=== PATIENT | male | born 1995 | race Caucasian/White ===

== ENCOUNTER 2016-09-04 05:31 | Emergency (ER) | payer BC, OTHER ==
[2016-09-04] MEDS ORDERED: ONDANSETRON 4 MG/2 ML VIAL IVP STA (06:24)
[2016-09-04] MEDS ORDERED: KETOROLAC 30 MG/ML 1 ML VIAL IVP STA (06:24)
--- NOTE | 2016-09-04 06:30 | ED ---
Abdominal Pain HPI - General Chief Complaint: Abdominal Pain Stated Complaint: kidney pain Time Seen by Provider: 09/04/16 06:02 Source: patient Mode of arrival: ambulatory Limitations: no limitations - History of Present Illness Initial Comments: This patient is 21-year-old man who presents with flank and abdominal pain. The patient states that the symptoms started Wednesday while he was at work. I will symptoms did not resolve he went to the urgent care yesterday, where he was seen and told that he had blood in his urine. He states he had a urinalysis and an x-ray, though he was not informed of the x-ray results. The patient was reportedly given prescription for ciprofloxacin and went home, where he states the pain seemed to worsen over the course of last night. He also had 2 episodes of vomiting that he states was due to the pain. The patient denies any hematemesis. Patient denies fever or chills. No chest pain , shortness of breath or cough. The pain is to the low back and radiates towards the right groin. There is no testicular pain or swelling. The pain is constant, severe, sharp and aching. Patient states it is worse if he lies supine and better if he sitting upright. MD Complaint: abdominal pain, flank pain Onset/Timin -: days(s) Location: RLQ, L flank, R flank Radiation: none Migration to: no migration Severity: severe Quality: aching, sharp Consistency: constant Improves With: other (Sitting upright) Worsens With: other (Lying supine) Associated Symptoms: nausea, vomiting - Related Data Home Medications Medication Instructions Recorded Confirmed Ciprofloxacin HCl [Cipro] 500 mg PO Q12HR 09/04/16 09/04/16 Previous Rx's Medication Instructions Recorded Acetaminophen-Codeine 300-30mg 1 tab PO Q4H PRN #20 tablet 09/04/16 [Tylenol w/codeine #3] Allergies Allergy/AdvReac Type Severity Reaction Status Date / Time No Known Allergies Allergy Verified 02/11/14 14:41 Review of Systems ROS Statement: Those systems with pertinent positive or pertinent negative responses have been documented in the HPI. ROS Other: All systems not noted in ROS Statement are negative. Constitutional: Denies: fever, chills Respiratory: Denies: cough, dyspnea Cardiovascular: Denies: chest pain, edema, syncope Gastrointestinal: Reports: as per HPI, abdominal pain, nausea, vomiting. Denies : diarrhea, constipation, melena, hematochezia Genitourinary: Denies: dysuria, hematuria, testicular pain, testicular mass Musculoskeletal: Reports: as per HPI, back pain Skin: Denies: rash Neurological: Denies: weakness, numbness Past Medical History Past Medical History: No Reported History History of Any Multi-Drug Resistant Organisms: None Reported Past Surgical History: Appendectomy Past Psychological History: No Psychological Hx Reported Smoking Status: Former smoker Past Alcohol Use History: None Reported Past Drug Use History: None Reported General Exam Limitations: no limitations General appearance: alert, in distress (Secondary to abdominal pain), obese Head exam: Present: atraumatic, normocephalic Eye exam: Present: normal appearance. Absent: scleral icterus, conjunctival injection ENT exam: Present: normal oropharynx Neck exam: Present: normal inspection Respiratory exam: Present: normal lung sounds bilaterally. Absent: respiratory distress, wheezes, rales, rhonchi, stridor Cardiovascular Exam: Present: regular rate, normal rhythm, normal heart sounds. Absent: systolic murmur, diastolic murmur, rubs, gallop GI/Abdominal exam: Present: soft, tenderness, normal bowel sounds. Absent: distended, guarding, rebound, mass, pulsatile mass, hernia Extremities exam: Present: normal inspection, normal capillary refill. Absent: pedal edema, calf tenderness Back exam: Present: normal inspection, full ROM, CVA tenderness (R). Absent: CVA tenderness (L), vertebral tenderness Neurological exam: Present: alert, normal gait Psychiatric exam: Present: normal affect Skin exam: Present: warm, intact, normal color, diaphoretic. Absent: rash Course Vital Signs 09/04/16 09/04/16 05:41 07:33 Temperature 97.9 F Pulse Rate 80 80 Respiratory 18 15 Rate Blood Pressure 133/68 97/52 O2 Sat by Pulse 96 97 Oximetry Medical Decision Making - Lab Data Result diagrams: 09/04/16 06:22 09/04/16 06:22 Lab Results 09/04/16 09/04/16 09/04/16 Range/Units 06:03 06:22 06:22 WBC 6.2 (4.0-11.0) k/uL RBC 5.72 (4.30-5.90) m/uL Hgb 16.7 (13.0-17.5) gm/dL Hct 50.3 (39.0-53.0) % MCV 88.0 (80.0-100.0) fL MCH 29.1 (25.0-35.0) pg MCHC 33.1 (31.0-37.0) g/dL RDW 12.7 (11.5-15.5) % Plt Count 238 (150-450) k/uL Neutrophils % 54 % Lymphocytes % 32 % Monocytes % 8 % Eosinophils % 2 % Basophils % 0 % Neutrophils # 3.3 (1.3-7.7) k/uL Lymphocytes # 2.0 (1.0-4.8) k/uL Monocytes # 0.5 (0-1.0) k/uL Eosinophils # 0.1 (0-0.7) k/uL Basophils # 0.0 (0-0.2) k/uL Sodium 145 (137-145) mmol/L Potassium 4.4 (3.5-5.1) mmol/L Chloride 107 (98-107) mmol/L Carbon Dioxide 22 (22-30) mmol/L Anion Gap 16 mmol/L BUN 14 (9-20) mg/dL Creatinine 0.83 (0.66-1.25) mg/dL Est GFR (MDRD) Af Amer >60 (>60 ml/min/1.73 sqM) Est GFR (MDRD) Non-Af >60 (>60 ml/min/1.73 sqM) Glucose 94 (74-99) mg/dL Calcium 9.7 (8.4-10.2) mg/dL Total Bilirubin 1.3 (0.2-1.3) mg/dL AST 51 (17-59) U/L ALT 73 H (21-72) U/L Alkaline Phosphatase 63 (38-126) U/L Total Protein 8.6 H (6.3-8.2) g/dL Albumin 4.6 (3.5-5.0) g/dL Amylase 94 (30-110) U/L Lipase 130 (23-300) U/L Urine Color Yellow Urine Appearance Clear (Clear) Urine pH 5.5 (5.0-8.0) Ur Specific Rupert 1.014 (1.001-1.035) Urine Protein Negative (Negative) Urine Glucose (UA) Negative (Negative) Urine Ketones Negative (Negative) Urine Blood Negative (Negative) Urine Nitrite Negative (Negative) Urine Bilirubin Negative (Negative) Urine Urobilinogen <2.0 (<2.0) mg/dL Ur Leukocyte Esterase Negative (Negative) Disposition Clinical Impression: Abdominal pain, Mesenteric adenitis Disposition: HOME SELF-CARE Condition: Fair Instructions: Abdominal Pain (ED) Prescriptions: Acetaminophen-Codeine 300-30mg [Tylenol w/codeine #3] 1 tab PO Q4H PRN #20 tablet PRN Reason: Pain Referrals: Eliezer Durán DO [Primary Care Provider] - 1-2 days
[2016-09-04 06:39] LABS: Appearance,Urine Clear (Clear); Bilirubin,Urine Negative (Negative); Glucose,Urine (UA) Negative (Negative); Ketones,Urine Negative (Negative); Leukocyte Esterase,Urine Negative (Negative); Nitrite,Urine Negative (Negative); PH, Urine 5.5 (5.0-8.0); Protein,Urine Negative (Negative); Specific Gravity,Urine 1.014 (1.001-1.035); UA Billing (MACRO vs. MICRO) CHEM; Urobilinogen,Urine <2.0 mg/dL (<2.0)
[2016-09-04 06:41] LABS: Basophils % (A) 0 %; CH 29.4; CHCM 33.6; Eosinophils # (A) 0.1 k/uL (0-0.7); Eosinophils % (A) 2 %; HCT 50.3 % (39.0-53.0); HDW 2.48; HGB 16.7 gm/dL (13.0-17.5); Luc # (Auto) 0.28; Luc % (Auto) 4; Lymphocytes % (A) 32 %; MCH 29.1 pg (25.0-35.0); MCHC 33.1 g/dL (31.0-37.0); Mean Platelet Volume 7.4; Monocytes # (A) 0.5 k/uL (0-1.0); Monocytes % (A) 8 %; Neutrophils # (A) 3.3 k/uL (1.3-7.7); Neutrophils % (A) 54 %; RBC 5.72 m/uL (4.30-5.90); RDW 12.7 % (11.5-15.5); WBC 6.2 k/uL (4.0-11.0); WBC (Perox) 6.28
[2016-09-04 06:50] LABS: ALT 73 U/L (21-72); AST 51 U/L (17-59); Alkaline Phosphatase 63 U/L (38-126); Amylase 94 U/L (30-110); Anion Gap 16 mmol/L; Blood Urea Nitrogen 14 mg/dL (9-20); Calcium 9.7 mg/dL (8.4-10.2); Carbon Dioxide 22 mmol/L (22-30); Chloride 107 mmol/L (98-107); Glucose 94 mg/dL (74-99); Non-African American GFR(MDRD) >60 (>60 ml/min/1.73 sqM); Potassium 4.4 mmol/L (3.5-5.1); Sodium 145 mmol/L (137-145); Total Bilirubin 1.3 mg/dL (0.2-1.3); Total Protein 8.6 g/dL (6.3-8.2)
[2016-09-04 07:37] VITALS: RESP 15
--- NOTE | 2016-09-04 07:43 | CT ---
EXAMINATION TYPE: CT abdomen pelvis wo con DATE OF EXAM: 09/04/2016 7:03 AM COMPARISON: NONE HISTORY: Nausea, Vomitting and Diarrhea. Abdominal pain. Renal Stone CT DLP: 1317.40 mGycm Automated exposure control for dose reduction was used. TECHNIQUE: Helical acquisition of images was performed from the lung bases through the pelvis. FINDINGS: LUNG BASES: No significant abnormality is appreciated. LIVER/GB: Liver reduced attenuation suggests fatty infiltration. Liver appears to be enlarged measuri ng 25 cm. Correlate for hepatomegaly.. PANCREAS: No significant abnormality is seen. SPLEEN: No significant abnormality is seen. ADRENALS: No significant abnormality is seen. KIDNEYS: No significant abnormality is seen. URINARY BLADDER: No significant abnormality is seen. ADENOPATHY: Shotty adenopathy in the right lower quadrant mesentery. . OSSEOUS STRUCTURES: Curvature of the spine may be positional correlate for scoliotic curvature.. BOWEL: Suggestion of surgical change in the region of the appendix. Appendix is not seen with certai nty correlate for previous appendectomy bowel gas pattern nonspecific. No diagnostic evidence. OTHER: Aorta of normal caliber. Bladder is nondistended which likely is nonspecific bladder wall thic kening which be correlated clinically to exclude cystitis IMPRESSION: SHOTTY ADENOPATHY IN THE RIGHT LOWER QUADRANT CAN OCCASIONALLY BE SEEN WITH MESENTERIC ADENITIS. APPE ARS TO BE EVIDENCE OF PREVIOUS SURGERY IN THE REGION OF THE RIGHT CECUM. RELATED TO PREVIOUS APPENDEC DEANDRE. Appendix is not visualized. Correlate clinically. Correlate for fatty infiltration of the liver or hepatitis with hepatomegaly.
[2016-09-04 08:32] VITALS: BP 111/56; PULSE 67; TEMP 97.3
== END 2016-09-04 08:33 | disposition home or self-care (01) ==
LOC: EC 05:31
DX: I88.0 Nonspecific mesenteric lymphadenitis (principal); R11.2 Nausea with vomiting, unspecified; E66.9 Obesity, unspecified; Z87.891 Personal history of nicotine dependence; Z90.49 Acquired absence of other specified parts of digestive tract; Z68.39 Body mass index [BMI] 39.0-39.9, adult
CPT/HCPCS: 99284; 96374; 96375; 36415; 80053; 82150; 83690; 85025; 81003; 74176; J2405; J1885

== ENCOUNTER 2016-11-15 23:53 | Emergency (ER) | payer BC ==
--- NOTE | 2016-11-16 00:05 | ED ---
General Adult HPI - General Stated complaint: chest pain Time Seen by Provider: 11/15/16 23:55 Source: RN notes reviewed - History of Present Illness Initial comments: This is a 21-year-old male presents emergency department with no significant past medical history. Patient states earlier today started having some palpitations in his heart and he felt some positive as well. This concerned him but he continued on with his day patient states later in the evening he again had some palpitations and felt some tingling in his left arm secondary came to the emergency department. Patient states he has no decreased sensation he has no weakness of the left arm. Patient denies any recent injury or trauma. Patient denies any fever patient denies any recent cough. Patient states currently he feels a little soreness in his chest and he states that when he palpates it it is reproducible. Patient denies abdominal pain patient denies nausea vomiting diarrhea. Patient denies headache patient denies numbness weakness. Patient denies lightheadedness dizziness or syncopal episode. - Related Data Home Medications Medication Instructions Recorded Confirmed Ciprofloxacin HCl [Cipro] 500 mg PO Q12HR 09/04/16 09/04/16 Previous Rx's Medication Instructions Recorded Acetaminophen-Codeine 300-30mg 1 tab PO Q4H PRN #20 tablet 09/04/16 [Tylenol w/codeine #3] Allergies Allergy/AdvReac Type Severity Reaction Status Date / Time cotton seed oil Allergy Unknown Uncoded 11/16/16 00:29 Review of Systems ROS Statement: Those systems with pertinent positive or pertinent negative responses have been documented in the HPI. ROS Other: All systems not noted in ROS Statement are negative. Past Medical History Past Medical History: No Reported History History of Any Multi-Drug Resistant Organisms: None Reported Past Surgical History: Appendectomy Past Psychological History: No Psychological Hx Reported Smoking Status: Former smoker Past Alcohol Use History: None Reported Past Drug Use History: None Reported General Exam - General Exam Comments Initial Comments: GENERAL: Patient is well-developed and well-nourished. Patient is nontoxic and well- hydrated and is in mild distress. ENT: Neck is soft and supple. No significant lymphadenopathy is noted. Oropharynx is clear. Moist mucous membranes. Neck has full range of motion without eliciting any pain. EYES: The sclera were anicteric and conjunctiva were pink and moist. Extraocular movements were intact and pupils were equal round and reactive to light. Eyelids were unremarkable. PULMONARY: Unlabored respirations. Good breath sounds bilaterally. No audible rales rhonchi or wheezing was noted. CARDIOVASCULAR: There is a regular rate and rhythm without any murmurs gallops or rubs. ABDOMEN: Soft and nontender with normal bowel sounds. No palpable organomegaly was noted. There is no palpable pulsatile mass. SKIN: Skin is clear with no lesions or rashes and otherwise unremarkable. NEUROLOGIC: Patient is alert and oriented x3. Cranial nerves II through XII are grossly intact. Motor and sensory are also intact. Normal speech, volume and content. Symmetrical smile. MUSCULOSKELETAL: Normal extremities with adequate strength and full range of motion. No lower extremity swelling or edema. No calf tenderness. LYMPHATICS: No significant lymphadenopathy is noted PSYCHIATRIC: Normal psychiatric evaluation. Normal interpersonal interactions appears functionally intact in deals appropriately with others. No signs of depression. No signs of anxiety. Course Vital Signs 11/16/16 11/16/16 00:00 00:34 Temperature 100.4 F H Pulse Rate 88 91 Respiratory 18 18 Rate Blood Pressure 155/85 140/64 O2 Sat by Pulse 100 98 Oximetry Medical Decision Making - Medical Decision Making EKG shows a normal sinus rhythm at 92 bpm AL interval is 130 QRS is 100 QT interval 384 QTC is 474. Patient's EKG shows no ST segment elevation or depression Chest x-ray shows no acute abnormality. - Lab Data Result diagrams: 11/16/16 00:17 11/16/16 00:17 Lab Results 11/16/16 11/16/16 11/16/16 Range/Units 00: 00:17 00:17 WBC 9.1 (4.0-11.0) k/uL RBC 5.66 (4.30-5.90) m/uL Hgb 16.6 (13.0-17.5) gm/dL Hct 50.8 (39.0-53.0) % MCV 89.7 (80.0-100.0) fL MCH 29.3 (25.0-35.0) pg MCHC 32.6 (31.0-37.0) g/dL RDW 13.1 (11.5-15.5) % Plt Count 267 (150-450) k/uL Neutrophils % 63 % Lymphocytes % 27 % Monocytes % 4 % Eosinophils % 3 % Basophils % 1 % Neutrophils # 5.7 (1.3-7.7) k/uL Lymphocytes # 2.5 (1.0-4.8) k/uL Monocytes # 0.4 (0-1.0) k/uL Eosinophils # 0.2 (0-0.7) k/uL Basophils # 0.1 (0-0.2) k/uL PT (9.0-12.0) sec INR (<1.1) APTT (22.0-30.0) sec Sodium 141 (137-145) mmol/L Potassium 4.4 (3.5-5.1) mmol/L Chloride 104 (98-107) mmol/L Carbon Dioxide 25 (22-30) mmol/L Anion Gap 12 mmol/L BUN 13 (9-20) mg/dL Creatinine 0.90 (0.66-1.25) mg/dL Est GFR (MDRD) Af Amer >60 (>60 ml/min/1.73 sqM) Est GFR (MDRD) Non-Af >60 (>60 ml/min/1.73 sqM) Glucose 99 (74-99) mg/dL Calcium 9.7 (8.4-10.2) mg/dL Magnesium 1.8 (1.6-2.3) mg/dL Total Bilirubin 1.0 (0.2-1.3) mg/dL AST 37 (17-59) U/L ALT 66 (21-72) U/L Alkaline Phosphatase 60 (38-126) U/L Total Creatine Kinase 49 L (55-170) U/L CK-MB (CK-2) 0.4 (0.0-2.4) ng/mL CK-MB (CK-2) Rel Index 0.8 Troponin I <0.012 (0.000-0.034) ng/mL Total Protein 7.9 (6.3-8.2) g/dL Albumin 4.7 (3.5-5.0) g/dL 11/16/16 Range/Units 00:17 WBC (4.0-11.0) k/uL RBC (4.30-5.90) m/uL Hgb (13.0-17.5) gm/dL Hct (39.0-53.0) % MCV (80.0-100.0) fL MCH (25.0-35.0) pg MCHC (31.0-37.0) g/dL RDW (11.5-15.5) % Plt Count (150-450) k/uL Neutrophils % % Lymphocytes % % Monocytes % % Eosinophils % % Basophils % % Neutrophils # (1.3-7.7) k/uL Lymphocytes # (1.0-4.8) k/uL Monocytes # (0-1.0) k/uL Eosinophils # (0-0.7) k/uL Basophils # (0-0.2) k/uL PT 10.2 (9.0-12.0) sec INR 1.0 (<1.1) APTT 29.1 (22.0-30.0) sec Sodium (137-145) mmol/L Potassium (3.5-5.1) mmol/L Chloride (98-107) mmol/L Carbon Dioxide (22-30) mmol/L Anion Gap mmol/L BUN (9-20) mg/dL Creatinine (0.66-1.25) mg/dL Est GFR (MDRD) Af Amer (>60 ml/min/1.73 sqM) Est GFR (MDRD) Non-Af (>60 ml/min/1.73 sqM) Glucose (74-99) mg/dL Calcium (8.4-10.2) mg/dL Magnesium (1.6-2.3) mg/dL Total Bilirubin (0.2-1.3) mg/dL AST (17-59) U/L ALT (21-72) U/L Alkaline Phosphatase (38-126) U/L Total Creatine Kinase (55-170) U/L CK-MB (CK-2) (0.0-2.4) ng/mL CK-MB (CK-2) Rel Index Troponin I (0.000-0.034) ng/mL Total Protein (6.3-8.2) g/dL Albumin (3.5-5.0) g/dL Disposition Clinical Impression: Palpitations Disposition: HOME SELF-CARE Condition: Good Instructions: Palpitations (ED) Referrals: Eliezer Durán DO [Primary Care Provider] - 1-2 days Time of Disposition: 01:04
[2016-11-16 00:07] VITALS: RESP 18
[2016-11-16] MEDS ORDERED: ACETAMINOPHEN TAB 500 MG TAB PO STA (00:09)
[2016-11-16 00:31] LABS: Basophils # (A) 0.1 k/uL (0-0.2); Basophils % (A) 1 %; CH 29.9; CHCM 33.5; Eosinophils # (A) 0.2 k/uL (0-0.7); Eosinophils % (A) 3 %; HCT 50.8 % (39.0-53.0); HDW 2.42; HGB 16.6 gm/dL (13.0-17.5); Luc # (Auto) 0.22; Luc % (Auto) 2; Lymphocytes # (A) 2.5 k/uL (1.0-4.8); Lymphocytes % (A) 27 %; MCH 29.3 pg (25.0-35.0); MCHC 32.6 g/dL (31.0-37.0); MCV 89.7 fL (80.0-100.0); Mean Platelet Volume 7.6; Monocytes # (A) 0.4 k/uL (0-1.0); Monocytes % (A) 4 %; Neutrophils # (A) 5.7 k/uL (1.3-7.7); Neutrophils % (A) 63 %; RBC 5.66 m/uL (4.30-5.90); RDW 13.1 % (11.5-15.5); WBC 9.1 k/uL (4.0-11.0); WBC (Perox) 8.23
[2016-11-16 00:36] LABS: Partial Thromboplastin Time 29.1 sec (22.0-30.0); Prothrombin Time 10.2 sec (9.0-12.0)
[2016-11-16 00:40] LABS: ALT 66 U/L (21-72); AST 37 U/L (17-59); Alkaline Phosphatase 60 U/L (38-126); Anion Gap 12 mmol/L; Blood Urea Nitrogen 13 mg/dL (9-20); Calcium 9.7 mg/dL (8.4-10.2); Carbon Dioxide 25 mmol/L (22-30); Chloride 104 mmol/L (98-107); Glucose 99 mg/dL (74-99); Magnesium 1.8 mg/dL (1.6-2.3); Non-African American GFR(MDRD) >60 (>60 ml/min/1.73 sqM); Potassium 4.4 mmol/L (3.5-5.1); Sodium 141 mmol/L (137-145); Total Protein 7.9 g/dL (6.3-8.2)
[2016-11-16 00:46] LABS: Creatine Kinase 49 U/L (55-170)
[2016-11-16 00:59] LABS: Creatine Kinase MB 0.4 ng/mL (0.0-2.4); Troponin I <0.012 ng/mL (0.000-0.034)
[2016-11-16 01:14] VITALS: BP 125/59; PULSE 89; TEMP 100
--- NOTE | 2016-11-16 01:39 | XR ---
EXAM: XR Chest, 2 Views CLINICAL HISTORY: Dysrhythmia TECHNIQUE: Frontal and lateral views of the chest. COMPARISON: No relevant prior studies available. FINDINGS: Lungs: Unremarkable. No consolidation. Pleural space: Unremarkable. No pneumothorax. Heart: Unremarkable. No cardiomegaly. Mediastinum: Unremarkable. Bones/joints: Unremarkable. IMPRESSION: Normal chest x-rays.
== END 2016-11-16 01:14 | disposition home or self-care (01) ==
LOC: EC 23:53
DX: R00.2 Palpitations (principal); Z87.891 Personal history of nicotine dependence; Z91.048 Other nonmedicinal substance allergy status
CPT/HCPCS: 36415; 71020; 80053; 82550; 82553; 83735; 84484; 85025; 85610; 85730; 93005; 99285

== ENCOUNTER 2017-03-16 00:04 | Emergency (ER) | payer BC ==
[2017-03-16 00:09] VITALS: RESP 16
[2017-03-16] MEDS ORDERED: predniSONE 20 MG TAB PO STA (01:08)
[2017-03-16] MEDS ORDERED: valACYclovir 500 MG TAB PO STA (01:35)
--- NOTE | 2017-03-16 01:35 | ED ---
General Adult HPI - General Chief complaint: ENT Stated complaint: L Side Face Numbness Time Seen by Provider: 03/16/17 00:18 Source: patient Mode of arrival: ambulatory Limitations: no limitations - History of Present Illness Initial comments: Left facial weakness. Patient is 21-year-old man who states that he was at work tonight probably about 3 hours ago, when he noted that the left side of his face was feeling funny. Coworkers subsequent only told him that his face was asymmetric, and he has noted that his eyelid seems to be drooping. Onset/Timin -: hour(s) Location: face Consistency: constant Improves with: none Worsens with: none Associated Symptoms: denies other symptoms Treatments Prior to Arrival: none - Related Data Home Medications Medication Instructions Recorded Confirmed Ciprofloxacin HCl [Cipro] 500 mg PO Q12HR 09/04/16 09/04/16 Previous Rx's Medication Instructions Recorded Acetaminophen-Codeine 300-30mg 1 tab PO Q4H PRN #20 tablet 09/04/16 [Tylenol w/codeine #3] predniSONE 80 mg PO DIRECTED #30 tab 03/16/17 valACYclovir [Valtrex] 500 mg PO BID #10 tab 03/16/17 Allergies Allergy/AdvReac Type Severity Reaction Status Date / Time cotton seed oil Allergy Unknown Uncoded 03/16/17 00:09 Review of Systems ROS Statement: Those systems with pertinent positive or pertinent negative responses have been documented in the HPI. ROS Other: All systems not noted in ROS Statement are negative. Constitutional: Denies: fever, chills Eyes: Denies: eye pain, vision change Respiratory: Denies: cough, dyspnea Cardiovascular: Denies: chest pain Skin: Denies: rash Neurological: Reports: weakness (Left face), numbness (Left face). Denies: headache, paresthesias Past Medical History Past Medical History: No Reported History History of Any Multi-Drug Resistant Organisms: None Reported Past Surgical History: Appendectomy Past Psychological History: No Psychological Hx Reported Smoking Status: Former smoker Past Alcohol Use History: None Reported Past Drug Use History: None Reported General Exam Limitations: no limitations General appearance: alert, in no apparent distress, obese Head exam: Present: atraumatic, normocephalic Eye exam: Present: PERRL, EOMI. Absent: scleral icterus, conjunctival injection , periorbital swelling, periorbital tenderness ENT exam: Present: TM's normal bilaterally, normal external ear exam, other ( There is left facial droop) Neck exam: Present: normal inspection, full ROM Respiratory exam: Present: normal lung sounds bilaterally. Absent: respiratory distress, wheezes, rales, rhonchi, stridor Cardiovascular Exam: Present: regular rate, normal rhythm, normal heart sounds. Absent: systolic murmur, diastolic murmur, rubs, gallop GI/Abdominal exam: Present: soft. Absent: distended, tenderness, guarding, rebound, rigid Extremities exam: Present: normal inspection, normal capillary refill. Absent: pedal edema, calf tenderness Neurological exam: Present: alert, oriented X3. Absent: CN II-XII intact ( Patient has weakness of the left side of the face, including the upper motor branch.), motor sensory deficit Skin exam: Present: warm, dry, intact, normal color. Absent: rash Course Vital Signs 03/16/17 03/16/17 00:05 01:51 Temperature 99.2 F 98.2 F Pulse Rate 85 68 Respiratory 16 16 Rate Blood Pressure 173/101 109/62 O2 Sat by Pulse 99 99 Oximetry Medical Decision Making - Medical Decision Making Patient is 21-year-old man with the acute onset of left sided facial weakness, involving both the upper portion of the face and lower, consistent with Brown's palsy. Discussed appropriate care and follow-up and started patient on medication here. Discussed return parameters. Discussed artificial tear use. Disposition Clinical Impression: Brown's palsy Disposition: HOME SELF-CARE Condition: Good Instructions: Brown Palsy (ED) Prescriptions: predniSONE 80 mg PO DIRECTED #30 tab valACYclovir [Valtrex] 500 mg PO BID #10 tab Referrals: Eliezer Durán DO [Primary Care Provider] - 1-2 days
[2017-03-16 01:52] VITALS: BP 109/62; PULSE 68; TEMP 98.2
[2017-03-16] MEDS ORDERED: valACYclovir 500 MG TAB PO SCH (09:00)
--- NOTE | 2017-03-18 04:14 | CDI ---
Documentation Clarification OP Dear Dr. Julien Maynard Please do addendum to ED report that provides complete HPI, Physical Exam and MDM. Thank you, Steve Zhao Sales Agent Protective Service If you have any questions, please contact Patient Scheduler at [phone] [facility]
== END 2017-03-16 01:51 | disposition home or self-care (01) ==
LOC: EC 00:04
DX: G51.0 Bell's palsy (principal); Z87.891 Personal history of nicotine dependence
CPT/HCPCS: 99283; J7512

== ENCOUNTER 2018-03-05 13:46 | Emergency (ER) | payer BC, OTHER ==
[2018-03-05 14:01] VITALS: RESP 18; TEMP 98.3
[2018-03-05] MEDS ORDERED: HYDROcodone/APAP 5-325MG 1 EACH TAB PO STA (14:37)
--- NOTE | 2018-03-05 14:41 | ED ---
General Adult HPI - General Chief complaint: ENT Stated complaint: FB ear Time Seen by Provider: 03/05/18 14:20 Source: patient, RN notes reviewed Mode of arrival: ambulatory Limitations: no limitations - History of Present Illness Initial comments: 22-year-old male presents to the emergency department for a chief complaint of right ear pain 1 hour. 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 Patient states hot flux is hot metal. Patient states he is having sharp shooting right ear pain. Patient is up-to-date on immunizations including tetanus. Patient denies any hearing loss. Mother states she was able to pull the piece of hot flux out of the ear. Patient states it was the size of a "spark." Patient has no other complaints at this time including shortness of breath, chest pain, abdominal pain, nausea or vomiting, headache, or visual changes. - Related Data Home Medications Medication Instructions Recorded Confirmed Ciprofloxacin HCl [Cipro] 500 mg PO Q12HR 09/04/16 09/04/16 Previous Rx's Medication Instructions Recorded Acetaminophen-Codeine 300-30mg 1 tab PO Q4H PRN #20 tablet 09/04/16 [Tylenol w/codeine #3] predniSONE 80 mg PO DIRECTED #30 tab 03/16/17 valACYclovir [Valtrex] 500 mg PO BID #10 tab 03/16/17 Ofloxacin 0.3% Ophth Soln [Ocuflox 10 drops RIGHT EAR DAILY 7 Days ml 03/05/18 Ophth Soln] Allergies Allergy/AdvReac Type Severity Reaction Status Date / Time cotton seed oil Allergy Unknown Uncoded 03/05/18 14:01 Review of Systems ROS Statement: Those systems with pertinent positive or pertinent negative responses have been documented in the HPI. ROS Other: All systems not noted in ROS Statement are negative. Past Medical History Past Medical History: No Reported History History of Any Multi-Drug Resistant Organisms: None Reported Past Surgical History: Appendectomy, Ear Surgery Past Psychological History: No Psychological Hx Reported Smoking Status: Former smoker Past Alcohol Use History: None Reported Past Drug Use History: None Reported General Exam Limitations: no limitations General appearance: alert, in no apparent distress Head exam: Present: atraumatic, normocephalic, normal inspection Eye exam: Present: normal appearance, PERRL, EOMI. Absent: scleral icterus, conjunctival injection, periorbital swelling ENT exam: Present: normal oropharynx, mucous membranes moist, TM's normal bilaterally (Tympanic membrane has normal appearance in the right ear, no perforations noted.), normal external ear exam (No erythema noted in the right ear. No evidence of foreign body noted. No pain with palpation of the pinna or tragus) Neck exam: Present: normal inspection, full ROM. Absent: tenderness, meningismus, lymphadenopathy Respiratory exam: Present: normal lung sounds bilaterally. Absent: respiratory distress, wheezes, rales, rhonchi, stridor Cardiovascular Exam: Present: regular rate, normal rhythm, normal heart sounds. Absent: systolic murmur, diastolic murmur, rubs, gallop, clicks Neurological exam: Present: alert, oriented X3, CN II-XII intact Psychiatric exam: Present: normal affect, normal mood Skin exam: Present: warm, dry, intact, normal color. Absent: rash Course Vital Signs 03/05/18 13:59 Temperature 98.3 F Pulse Rate 87 Respiratory 18 Rate Blood Pressure 167/87 O2 Sat by Pulse 99 Oximetry Medical Decision Making - Medical Decision Making 22-year-old male presents for pain of the right ear 2 hours. 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 Patient states this piece of metal was about the size of a "spark." Patient is up-to-date on tetanus. On exam tympanic membrane appears normal, no erythema, bulging, or perforations noted. No evidence of lemus or trauma within the ear canal. Patient was given an [place] in the emergency department and educated on Motrin and Tylenol at home for pain relief. Patient was given ofloxacin drops to prevent any infection. He was educated to keep the ear clean. He was given a referral to ENT. Discussed returning if symptoms worsen such as having increased pain, fevers, or increased redness. Disposition Clinical Impression: Ear pain, right Disposition: HOME SELF-CARE Condition: Good Instructions: Earache (ED) Additional Instructions: Please use antibiotic drops as directed. Take Motrin and Tylenol for pain Try to keep ear clean. Monitor for any worsening symptoms and return if these occur such as increased pain, drainage, or fever. Follow-up with primary care or ENT in 1-2 days. Prescriptions: Ofloxacin 0.3% Ophth Soln [Ocuflox Ophth Soln] 10 drops RIGHT EAR DAILY 7 Days ml Is patient prescribed a controlled substance at d/c from ED?: No Referrals: Eliezer uDrán DO [Primary Care Provider] - 1-2 days Froilan Pierce DO [Doctor of Osteopathic Medicine] - 1-2 days Time of Disposition: 14:38
[2018-03-05] MEDS ORDERED: TOPICAL SKIN ADHESIVE 1 EACH AMP TOPICAL ONE (14:51)
[2018-03-05 14:52] VITALS: BP 129/79; PULSE 79
== END 2018-03-05 14:45 | disposition home or self-care (01) ==
LOC: EC 13:46
DX: H92.01 Otalgia, right ear (principal); Z87.891 Personal history of nicotine dependence; Z91.048 Other nonmedicinal substance allergy status; Z98.890 Other specified postprocedural states
CPT/HCPCS: 99282

== ENCOUNTER 2019-08-02 10:13 | Emergency (ER) | payer BC ==
[2019-08-02] MEDS ORDERED: diphenhydrAMINE 50 MG/ML 1 ML VIAL IVP STA (10:32)
[2019-08-02] MEDS ORDERED: KETOROLAC 30 MG/ML 1 ML VIAL IVP STA (10:32)
[2019-08-02] MEDS ORDERED: ONDANSETRON 4 MG/2 ML VIAL IVP STA (10:32)
--- NOTE | 2019-08-02 10:43 | ED ---
Headache HPI - General Chief Complaint: Headache Stated Complaint: Headache Time Seen by Provider: 08/02/19 10:22 Mode of arrival: ambulatory Limitations: no limitations - History of Present Illness Initial Comments: Patient is a 24-year-old male presenting to the emergency department with a headache 3 days. Patient states he noticed a headache while he was at school on the computer Wednesday evening and so he tried to take some Tylenol but it did not help. Patient states he slept for about 15 hours afterwards woke up feeling a little improvement and went to work however his headache returned. Patient states he has not had a fever, chills. He has been nauseous and vomited one time. The lights make his symptoms worse. He denies chest pain, shortness of breath, cough. Patient states he does have a history of headaches. He has no other complaints at this time. Upon arrival to the ER his BP is slightly elevated at rest of vitals are normal. - Related Data Home Medications Medication Instructions Recorded Confirmed Acetaminophen Tab [Tylenol Tab] 1,000 mg PO Q6HR PRN 08/02/19 08/02/19 Allergies Allergy/AdvReac Type Severity Reaction Status Date / Time cotton seed oil Allergy Unknown Uncoded 08/02/19 11:01 Review of Systems ROS Statement: Those systems with pertinent positive or pertinent negative responses have been documented in the HPI. ROS Other: All systems not noted in ROS Statement are negative. Past Medical History Past Medical History: No Reported History History of Any Multi-Drug Resistant Organisms: None Reported Past Surgical History: Appendectomy, Ear Surgery Past Psychological History: No Psychological Hx Reported Smoking Status: Former smoker Past Alcohol Use History: None Reported Past Drug Use History: None Reported General Exam - General Exam Comments Initial Comments: GENERAL: Well-appearing, well-nourished and in no acute distress. HEAD: Atraumatic, normocephalic. EYES: Pupils equal round and reactive to light, extraocular movements intact, sclera anicteric, conjunctiva are normal. ENT: TMs normal, nares patent, oropharynx clear without exudates. Moist mucous membranes. NECK: Normal range of motion, supple without lymphadenopathy or JVD. LUNGS: Breath sounds clear to auscultation bilaterally and equal. No wheezes rales or rhonchi. HEART: Regular rate and rhythm without murmurs, rubs or gallops. ABDOMEN: Soft, nontender, normoactive bowel sounds. No guarding, no rebound. No masses appreciated. : Deferred EXTREMITIES: Normal range of motion, no pitting or edema. No clubbing or cyanosis. Strength is 5 out of 5 in upper and lower extremities. NEUROLOGICAL: Cranial nerves II through XII grossly intact. Normal speech, normal gait. PSYCH: Normal mood, normal affect. SKIN: Warm, Dry, normal turgor, no rashes or lesions noted. Limitations: no limitations Course Vital Signs 08/02/19 10:17 Temperature 97.9 F Pulse Rate 111 H Respiratory 16 Rate Blood Pressure 150/100 O2 Sat by Pulse 99 Oximetry Medical Decision Making - Medical Decision Making Patient is a 24-year-old male presenting with a headache 3 days. Exam is unremarkable, no neuro deficits. Influenza is negative. Patient received some fluids, pain control, nausea, Benadryl. He reports improvement of symptoms. He is requesting to be discharged. Patient will have a trial of Excedrin for future headaches. He is stable for discharge. Return parameters were discussed with the patient he verbalizes understanding. - Lab Data Lab Results 08/02/19 Range/Units 10:55 Influenza Type A RNA Not Detected (Not Detectd) Influenza Type B (PCR) Not Detected (Not Detectd) Disposition Clinical Impression: Migraine headache Disposition: HOME SELF-CARE Condition: Stable Instructions (If sedation given, give patient instructions): Acute Headache (ED) Additional Instructions: Please return to the Emergency Department if symptoms worsen or any other concerns. Trial of Excedrin Extra Strength for future headaches. Follow-up with PCP. Is patient prescribed a controlled substance at d/c from ED?: No Referrals: Eliezer Durán DO [Primary Care Provider] - 1-2 days
[2019-08-02 12:21] VITALS: BP 138/88; PULSE 94; RESP 18; TEMP 98.2
== END 2019-08-02 12:21 | disposition home or self-care (01) ==
LOC: EC 10:13
DX: G43.909 Migraine, unspecified, not intractable, without status migrainosus (principal); Z91.048 Other nonmedicinal substance allergy status; Z87.891 Personal history of nicotine dependence
CPT/HCPCS: 87502; 99284; 96374; 96375 ×2; J1200; J2405; J1885

== ENCOUNTER 2019-12-04 19:30 | Emergency (ER) | payer BC ==
[2019-12-04 20:06] LABS: Basophils % (A) 0 %; Eosinophils # (A) 0.4 k/uL (0-0.7); Eosinophils % (A) 4 %; HGB 16.7 gm/dL (13.0-17.5); Lymphocytes # (A) 2.5 k/uL (1.0-4.8); Lymphocytes % (A) 27 %; MCH 30.2 pg (25.0-35.0); MCHC 34.1 g/dL (31.0-37.0); MCV 88.6 fL (80.0-100.0); Mean Platelet Volume 8.3; Monocytes # (A) 0.4 k/uL (0-1.0); Monocytes % (A) 4 %; Neutrophils # (A) 5.7 k/uL (1.3-7.7); Neutrophils % (A) 63 %; Platelet Count 290 k/uL (150-450); RBC 5.53 m/uL (4.30-5.90); RDW 12.7 % (11.5-15.5)
[2019-12-04 20:11] LABS: ALT 23 U/L (4-49); AST 26 U/L (17-59); African American GFR (CKD) >90 (>60 ml/min/1.73 sqM); Albumin 4.6 g/dL (3.5-5.0); Alkaline Phosphatase 46 U/L (38-126); Anion Gap 10 mmol/L; Blood Urea Nitrogen 10 mg/dL (9-20); Carbon Dioxide 22 mmol/L (22-30); Chloride 106 mmol/L (98-107); Glucose 136 mg/dL (74-99); Magnesium 1.9 mg/dL (1.6-2.3); Non-African American GFR(CKD) >90 (>60 ml/min/1.73 sqM); Potassium 3.6 mmol/L (3.5-5.1); Sodium 138 mmol/L (137-145); Total Bilirubin 1.2 mg/dL (0.2-1.3); Total Protein 7.6 g/dL (6.3-8.2)
[2019-12-04 20:15] LABS: INR 0.9 (<1.2); Partial Thromboplastin Time 29.1 sec (22.0-30.0); Prothrombin Time 9.7 sec (9.0-12.0)
[2019-12-04] MEDS ORDERED: KETOROLAC 30 MG/ML 1 ML VIAL IVP STA (20:53)
--- NOTE | 2019-12-04 20:56 | ED ---
General Adult HPI - General Chief complaint: Chest Pain Stated complaint: Chest Pain Time Seen by Provider: 12/04/19 20:39 Source: patient, RN notes reviewed, old records reviewed Mode of arrival: wheelchair Limitations: no limitations - History of Present Illness Initial comments: 23-year-old male patient presents to ED with cheif complaint of left parasternal chest pain. Patient was at the pain began yesterday approximately 4 PM after moving some heavy chairs and the bed. He reports that the pain has been consistent for the last 24 hours. Denies any shortness of breath. Denies any other complaints. Denies any past medical history. Systemic: Pt denies fatigue, fever/chills, rash. Pt denies weakness, night sweats, weight loss. Neuro: Pt denies headache, visual disturbances, syncope or pre-syncope. HEENT: Pt denies ocular discharge or irritation, otalgia, rhinorrhea, pharyngitis or notable lymphadenopathy. Cardiopulmonary: Pt denies SOB, heart palpitations, dyspnea on exertion. Abdominal/GI: Pt denies abdominal pain, n/v/d. : Pt denies dysuria, burning w/ urination, frequency/urgency. Denies new onset urinary or bowel incontinence. MSK: Pt denies myalgia, loss of strength or function in extremities. Neuro: Pt denies new onset weakness, paresthesias. - Related Data Home Medications Medication Instructions Recorded Confirmed Ibuprofen [Motrin Ib] 800 mg PO Q8H PRN 12/04/19 12/04/19 Allergies Allergy/AdvReac Type Severity Reaction Status Date / Time cotton seed oil Allergy Unknown Uncoded 12/04/19 21:19 Review of Systems ROS Statement: Those systems with pertinent positive or pertinent negative responses have been documented in the HPI. ROS Other: All systems not noted in ROS Statement are negative. Past Medical History Past Medical History: No Reported History History of Any Multi-Drug Resistant Organisms: None Reported Past Surgical History: Appendectomy, Ear Surgery Past Psychological History: No Psychological Hx Reported Smoking Status: Former smoker Past Alcohol Use History: None Reported Past Drug Use History: None Reported General Exam - General Exam Comments Initial Comments: Constitutional: NAD, AOX3, Pt has pleasant affect. HEENT: NC/AT, trachea midline, neck supple, no lymphadenopathy. Posterior pharynx non erythematous, without exudates. External ears appear normal, without discharge. Mucous membranes moist. Eyes PERRLA, EOM intact. There is no scleral icterus. No pallor noted. Cardiopulmonary: RRR, no murmurs, rubs or gallops, no JVD noted. Lungs CTAB in anterior and posterior collins. No peripheral edema. Abdominal exam: Abdomen soft and non-distended. Abdomen non-tender to palpation in all 4 quadrants. Bowel sounds active in LLQ. No hepatosplenomegaly. No ec chymosis Neuro: CN II-XII grossly intact. No nuchal rigidity. No raccon eyes, no pressley sign, no hemotympanum. No cervical spinal tenderness. MSK: No posterior calf tenderness bilaterally, homans sign negative bilaterally. Posterior tibialis and radial pulse +2 bilaterally. Sensation intact in upper and lower extremities. Full active ROM in upper and lower extremities, 5/5 stregnth. Chest pain is reproducible upon palpation left parasternal region. No external skin changes. Limitations: no limitations Course Vital Signs 12/04/19 12/04/19 19:35 20:21 Temperature 97.9 F Pulse Rate 80 84 Respiratory 18 20 Rate Blood Pressure 147/90 134/80 O2 Sat by Pulse 100 Oximetry Medical Decision Making - Medical Decision Making 23-year-old male patient presents to ED with cheif complaint of left parasternal chest pain. Patient was at the pain began yesterday approximately 4 PM after moving some heavy chairs and the bed. He reports that the pain has been consistent for the last 24 hours. Denies any shortness of breath. Denies any other complaints. Denies any past medical history. Patient vital signs are stable, afebrile. Physical exam displayed chest pain to be reproducible upon palpation. Laboratory investigations are unremarkable. Troponin is negative. Chest x-ray is negative for acute process. Patient's pain improved with Toradol. PERC negative. Patient does report that he has had some mild upper respiratory symptoms which he has been attributed to ALLERGIES. The with the patient's presentation consistent with costochondritis. Patient will be discharged with after anti-inflammatories and will follow up with primary care provider tomorrow. Case discussed with Dr. Morrow. - Lab Data Result diagrams: 12/04/19 19:49 12/04/19 19:54 Lab Results 12/04/19 12/04/19 12/04/19 Range/Units 19:49 19:54 19:54 WBC 9.0 (3.8-10.6) k/uL RBC 5.53 (4.30-5.90) m/uL Hgb 16.7 (13.0-17.5) gm/dL Hct 49.0 (39.0-53.0) % MCV 88.6 (80.0-100.0) fL MCH 30.2 (25.0-35.0) pg MCHC 34.1 (31.0-37.0) g/dL RDW 12.7 (11.5-15.5) % Plt Count 290 (150-450) k/uL Neutrophils % 63 % Lymphocytes % 27 % Monocytes % 4 % Eosinophils % 4 % Basophils % 0 % Neutrophils # 5.7 (1.3-7.7) k/uL Lymphocytes # 2.5 (1.0-4.8) k/uL Monocytes # 0.4 (0-1.0) k/uL Eosinophils # 0.4 (0-0.7) k/uL Basophils # 0.0 (0-0.2) k/uL PT 9.7 (9.0-12.0) sec INR 0.9 (<1.2) APTT 29.1 (22.0-30.0) sec Sodium 138 (137-145) mmol/L Potassium 3.6 (3.5-5.1) mmol/L Chloride 106 (98-107) mmol/L Carbon Dioxide 22 (22-30) mmol/L Anion Gap 10 mmol/L BUN 10 (9-20) mg/dL Creatinine 0.71 (0.66-1.25) mg/dL Est GFR (CKD-EPI)AfAm >90 (>60 ml/min/1.73 sqM) Est GFR (CKD-EPI)NonAf >90 (>60 ml/min/1.73 sqM) Glucose 136 H (74-99) mg/dL Calcium 10.0 (8.4-10.2) mg/dL Magnesium 1.9 (1.6-2.3) mg/dL Total Bilirubin 1.2 (0.2-1.3) mg/dL AST 26 (17-59) U/L ALT 23 (4-49) U/L Alkaline Phosphatase 46 (38-126) U/L Troponin I (0.000-0.034) ng/mL Total Protein 7.6 (6.3-8.2) g/dL Albumin 4.6 (3.5-5.0) g/dL 12/04/19 Range/Units 19:54 WBC (3.8-10.6) k/uL RBC (4.30-5.90) m/uL Hgb (13.0-17.5) gm/dL Hct (39.0-53.0) % MCV (80.0-100.0) fL MCH (25.0-35.0) pg MCHC (31.0-37.0) g/dL RDW (11.5-15.5) % Plt Count (150-450) k/uL Neutrophils % % Lymphocytes % % Monocytes % % Eosinophils % % Basophils % % Neutrophils # (1.3-7.7) k/uL Lymphocytes # (1.0-4.8) k/uL Monocytes # (0-1.0) k/uL Eosinophils # (0-0.7) k/uL Basophils # (0-0.2) k/uL PT (9.0-12.0) sec INR (<1.2) APTT (22.0-30.0) sec Sodium (137-145) mmol/L Potassium (3.5-5.1) mmol/L Chloride (98-107) mmol/L Carbon Dioxide (22-30) mmol/L Anion Gap mmol/L BUN (9-20) mg/dL Creatinine (0.66-1.25) mg/dL Est GFR (CKD-EPI)AfAm (>60 ml/min/1.73 sqM) Est GFR (CKD-EPI)NonAf (>60 ml/min/1.73 sqM) Glucose (74-99) mg/dL Calcium (8.4-10.2) mg/dL Magnesium (1.6-2.3) mg/dL Total Bilirubin (0.2-1.3) mg/dL AST (17-59) U/L ALT (4-49) U/L Alkaline Phosphatase (38-126) U/L Troponin I <0.012 (0.000-0.034) ng/mL Total Protein (6.3-8.2) g/dL Albumin (3.5-5.0) g/dL - EKG Data -: EKG Interpreted by Me (and Dr. Morrow ) EKG Comments: Ventricular rate 91, MD interval 134, QRS 98, QT/QTC 378/464. An chest rhythm, rightward axis. Borderline EKG. No significant change from prior. No concern for acute ischemia or arrhythmia at this time. Disposition Clinical Impression: Anterior chest wall pain, Costochondral chest pain Disposition: HOME SELF-CARE Condition: Stable Instructions (If sedation given, give patient instructions): Costochondritis (ED), Chest Wall Pain (ED) Additional Instructions: Follow-up with primary care provider tomorrow. Take anti-inflammatories for pain. Return to ER if condition worsens in any way. Is patient prescribed a controlled substance at d/c from ED?: No Referrals: Eliezre Durán DO [Primary Care Provider] - 1-2 days
--- NOTE | 2019-12-04 21:23 | XR ---
EXAMINATION TYPE: XR chest 2V DATE OF EXAM: 12/04/2019 COMPARISON: 11/16/2016 HISTORY: Chest pain TECHNIQUE: FINDINGS: Heart and mediastinum are normal. Lungs are clear. Diaphragm is normal. Bony thorax is inta ct. IMPRESSION: Normal chest. No change.
[2019-12-04 22:00] VITALS: BP 120/73; PULSE 79; RESP 12; TEMP 98.1
== END 2019-12-04 22:01 | disposition home or self-care (01) ==
LOC: EC 19:30
DX: R07.89 Other chest pain (principal); R07.1 Chest pain on breathing; Z87.891 Personal history of nicotine dependence; Z91.048 Other nonmedicinal substance allergy status
CPT/HCPCS: 36415; 93005; 80053; 83735; 84484; 85025; 85610; 85730; 71046; 99285; 96374; J1885

== ENCOUNTER 2020-11-05 17:21 | Emergency (ER) | payer BC ==
[2020-11-05 18:07] VITALS: TEMP 98
--- NOTE | 2020-11-05 18:31 | XR ---
EXAMINATION TYPE: XR KUB DATE OF EXAM: 11/05/2020 COMPARISON: None INDICATION: Abdomen pain vomiting TECHNIQUE: Single view abdomen upright view FINDINGS: Some minimal bowel gas is within the ascending colon and hepatic flexure. No suspicious differential air-fluid levels are evident. No free air is evident. No mass effect is evident. Psoas margins are normal. No organomegaly is present. IMPRESSION: 1. Nonspecific abdomen
[2020-11-05 18:43] LABS: Basophils % (A) 0 %; Eosinophils # (A) 0.2 k/uL (0-0.7); Eosinophils % (A) 2 %; HCT 53.6 % (39.0-53.0); HGB 17.2 gm/dL (13.0-17.5); Lymphocytes # (A) 0.7 k/uL (1.0-4.8); Lymphocytes % (A) 7 %; MCHC 32.1 g/dL (31.0-37.0); MCV 90.4 fL (80.0-100.0); Monocytes # (A) 0.3 k/uL (0-1.0); Monocytes % (A) 3 %; Neutrophils # (A) 8.9 k/uL (1.3-7.7); Neutrophils % (A) 88 %; Platelet Count 235 k/uL (150-450); RBC 5.93 m/uL (4.30-5.90); RDW 13.3 % (11.5-15.5); WBC 10.1 k/uL (3.8-10.6)
[2020-11-05 18:53] LABS: ALT 15 U/L (4-49); AST 23 U/L (17-59); African American GFR (CKD) >90 (>60 ml/min/1.73 sqM); Albumin 5.3 g/dL (3.5-5.0); Alkaline Phosphatase 49 U/L (38-126); Amylase 62 U/L (30-110); Anion Gap 10 mmol/L; Blood Urea Nitrogen 12 mg/dL (9-20); Calcium 10.2 mg/dL (8.4-10.2); Carbon Dioxide 25 mmol/L (22-30); Chloride 103 mmol/L (98-107); Glucose 93 mg/dL (74-99); Lipase 73 U/L (23-300); Non-African American GFR(CKD) >90 (>60 ml/min/1.73 sqM); Potassium 4.9 mmol/L (3.5-5.1); Sodium 138 mmol/L (137-145); Total Bilirubin 2.3 mg/dL (0.2-1.3); Total Protein 8.1 g/dL (6.3-8.2)
[2020-11-05] MEDS ORDERED: KETOROLAC 15 MG/ML 1 ML VIAL IVP STA (20:04)
[2020-11-05] MEDS ORDERED: SODIUM CHLORIDE 0.9% 1,000 ML IV ONE (20:04)
[2020-11-05] MEDS ORDERED: ONDANSETRON 4 MG/2 ML VIAL IVP STA (20:04)
[2020-11-05 20:42] LABS: Appearance,Urine Clear (Clear); Bacteria,Urine Rare /hpf; Bilirubin,Urine Negative (Negative); Blood,Urine Negative (Negative); Color,Urine Yellow; Glucose,Urine (UA) Negative (Negative); Ketones,Urine Negative (Negative); Leukocyte Esterase,Urine Negative (Negative); Mucus,Urine Occasional /hpf; Nitrite,Urine Negative (Negative); PH, Urine 5.5 (5.0-8.0); Protein,Urine 1+ (Negative); RBC,Urine 2 /hpf (0-5); Specific Gravity,Urine 1.024 (1.001-1.035); Squamous Epithelial Cell,Urine <1 /hpf (0-4); Urobilinogen,Urine <2.0 mg/dL (<2.0); WBC,Urine 1 /hpf (0-5)
--- NOTE | 2020-11-05 21:59 | US ---
EXAMINATION TYPE: US abdomen limited DATE OF EXAM: 11/05/2020 COMPARISON: CT CLINICAL HISTORY: attention RUQ. Attention RUQ. Abdominal pain x 8.5 hours. Hx appendectomy. EXAM MEASUREMENTS: Liver Length: 18.2 cm Gallbladder Wall: 0.23 cm CBD: 0.44 cm Right Kidney: 11.2 x 5.7 x 5.5 cm Limited due to gas. Pancreas: Limited due to gas. Appears heterogeneous. Liver: Appears slightly enlarged and coarse in echotexture. Gallbladder: Fold seen. Minimal internal echoes versus artifact seen. Evidence for sonographic Majano's sign: No. CBD: Portions seen appear wnl. Right Kidney: No hydronephrosis or masses seen IMPRESSION: 1. No acute ultrasound abnormality.
[2020-11-05] MEDS ORDERED: MAG HYDROX/AL HYDROX/SIMETH 30 ML, HYOSCYAMINE ELIXIR 10 ML, LIDOCAINE VISCOUS 2% 10 ML PO STA ×3 (22:11)
[2020-11-05 22:50] VITALS: BP 124/78; PULSE 82; RESP 16
--- NOTE | 2020-11-05 22:52 | ED ---
Abdominal Pain HPI - General Chief Complaint: Abdominal Pain Stated Complaint: abd pain Time Seen by Provider: 11/05/20 19:54 Source: patient Mode of arrival: ambulatory Limitations: no limitations - History of Present Illness MD Complaint: abdominal pain -: hour(s) Location: periumbilical, epigastric Radiation: none Migration to: no migration Severity: severe Quality: aching, sharp Consistency: constant Improves With: nothing Worsens With: nothing Associated Symptoms: nausea - Related Data Home Medications Medication Instructions Recorded Confirmed Ibuprofen [Motrin Ib] 800 mg PO Q8H PRN 12/04/19 11/05/20 Previous Rx's Medication Instructions Recorded Famotidine [Pepcid] 20 mg PO BID #14 tablet 11/05/20 Allergies Allergy/AdvReac Type Severity Reaction Status Date / Time cotton seed oil Allergy Unknown Uncoded 11/05/20 20:19 Review of Systems ROS Statement: Those systems with pertinent positive or pertinent negative responses have been documented in the HPI. ROS Other: All systems not noted in ROS Statement are negative. Constitutional: Denies: fever, chills Respiratory: Denies: cough, dyspnea Cardiovascular: Denies: chest pain, palpitations, edema Gastrointestinal: Reports: abdominal pain, nausea. Denies: vomiting, diarrhea, constipation Genitourinary: Denies: dysuria, hematuria, testicular pain, testicular mass Musculoskeletal: Denies: back pain Skin: Denies: rash Neurological: Denies: headache, weakness Past Medical History Past Medical History: No Reported History History of Any Multi-Drug Resistant Organisms: None Reported Past Surgical History: Appendectomy, Ear Surgery Past Psychological History: No Psychological Hx Reported Smoking Status: Current every day smoker Past Alcohol Use History: None Reported Past Drug Use History: None Reported General Exam Limitations: no limitations General appearance: alert, in no apparent distress Head exam: Present: atraumatic, normocephalic Eye exam: Present: normal appearance. Absent: scleral icterus, conjunctival injection ENT exam: Present: normal oropharynx Respiratory exam: Present: normal lung sounds bilaterally. Absent: respiratory distress, wheezes, rales, rhonchi, stridor Cardiovascular Exam: Present: regular rate, normal rhythm, normal heart sounds. Absent: systolic murmur, diastolic murmur, rubs, gallop GI/Abdominal exam: Present: soft, tenderness (Epigastric), normal bowel sounds. Absent: distended, guarding, rebound, rigid, mass, pulsatile mass, hernia Extremities exam: Present: normal inspection, normal capillary refill. Absent: pedal edema, calf tenderness Back exam: Present: normal inspection. Absent: CVA tenderness (R), CVA tenderness (L) Neurological exam: Present: alert Skin exam: Present: warm, dry, intact, normal color. Absent: rash Course Vital Signs 11/05/20 11/05/20 18:04 22:49 Temperature 98.0 F Pulse Rate 99 82 Respiratory 18 16 Rate Blood Pressure 120/72 124/78 O2 Sat by Pulse 98 100 Oximetry Medical Decision Making - Medical Decision Making This patient is 25-year-old man with history of previous appendectomy who presents with epigastric and periumbilical abdominal pain going on since early this afternoon. He has had associated nausea. Patient has not noted fever or chills. No cough or dyspnea. No change in urination or bowel movements. - Lab Data Result diagrams: 11/05/20 18:33 11/05/20 18:33 Lab Results 11/05/20 11/05/20 11/05/20 Range/Units 18:33 18:33 18:33 WBC 10.1 (3.8-10.6) k/uL RBC 5.93 H (4.30-5.90) m/uL Hgb 17.2 (13.0-17.5) gm/dL Hct 53.6 H (39.0-53.0) % MCV 90.4 (80.0-100.0) fL MCH 29.0 (25.0-35.0) pg MCHC 32.1 (31.0-37.0) g/dL RDW 13.3 (11.5-15.5) % Plt Count 235 (150-450) k/uL MPV 8.0 Neutrophils % 88 % Lymphocytes % 7 % Monocytes % 3 % Eosinophils % 2 % Basophils % 0 % Neutrophils # 8.9 H (1.3-7.7) k/uL Lymphocytes # 0.7 L (1.0-4.8) k/uL Monocytes # 0.3 (0-1.0) k/uL Eosinophils # 0.2 (0-0.7) k/uL Basophils # 0.0 (0-0.2) k/uL Sodium 138 (137-145) mmol/L Potassium 4.9 (3.5-5.1) mmol/L Chloride 103 (98-107) mmol/L Carbon Dioxide 25 (22-30) mmol/L Anion Gap 10 mmol/L BUN 12 (9-20) mg/dL Creatinine 0.81 (0.66-1.25) mg/dL Est GFR (CKD-EPI)AfAm >90 (>60 ml/min/1.73 sqM) Est GFR (CKD-EPI)NonAf >90 (>60 ml/min/1.73 sqM) Glucose 93 (74-99) mg/dL Plasma Lactic Acid Zacarias 1.0 (0.7-2.0) mmol/L Calcium 10.2 (8.4-10.2) mg/dL Total Bilirubin 2.3 H (0.2-1.3) mg/dL AST 23 (17-59) U/L ALT 15 (4-49) U/L Alkaline Phosphatase 49 (38-126) U/L Total Protein 8.1 (6.3-8.2) g/dL Albumin 5.3 H (3.5-5.0) g/dL Amylase 62 (30-110) U/L Lipase 73 (23-300) U/L Urine Color Urine Appearance (Clear) Urine pH (5.0-8.0) Ur Specific [place] (1.001-1.035) Urine Protein (Negative) Urine Glucose (UA) (Negative) Urine Ketones (Negative) Urine Blood (Negative) Urine Nitrite (Negative) Urine Bilirubin (Negative) Urine Urobilinogen (<2.0) mg/dL Ur Leukocyte Esterase (Negative) Urine RBC (0-5) /hpf Urine WBC (0-5) /hpf Ur Squamous Epith Cells (0-4) /hpf Urine Bacteria (None) /hpf Urine Mucus (None) /hpf 11/05/20 Range/Units 18:39 WBC (3.8-10.6) k/uL RBC (4.30-5.90) m/uL Hgb (13.0-17.5) gm/dL Hct (39.0-53.0) % MCV (80.0-100.0) fL MCH (25.0-35.0) pg MCHC (31.0-37.0) g/dL RDW (11.5-15.5) % Plt Count (150-450) k/uL MPV Neutrophils % % Lymphocytes % % Monocytes % % Eosinophils % % Basophils % % Neutrophils # (1.3-7.7) k/uL Lymphocytes # (1.0-4.8) k/uL Monocytes # (0-1.0) k/uL Eosinophils # (0-0.7) k/uL Basophils # (0-0.2) k/uL Sodium (137-145) mmol/L Potassium (3.5-5.1) mmol/L Chloride (98-107) mmol/L Carbon Dioxide (22-30) mmol/L Anion Gap mmol/L BUN (9-20) mg/dL Creatinine (0.66-1.25) mg/dL Est GFR (CKD-EPI)AfAm (>60 ml/min/1.73 sqM) Est GFR (CKD-EPI)NonAf (>60 ml/min/1.73 sqM) Glucose (74-99) mg/dL Plasma Lactic Acid Zacarias (0.7-2.0) mmol/L Calcium (8.4-10.2) mg/dL Total Bilirubin (0.2-1.3) mg/dL AST (17-59) U/L ALT (4-49) U/L Alkaline Phosphatase (38-126) U/L Total Protein (6.3-8.2) g/dL Albumin (3.5-5.0) g/dL Amylase (30-110) U/L Lipase (23-300) U/L Urine Color Yellow Urine Appearance Clear (Clear) Urine pH 5.5 (5.0-8.0) Ur Specific [place] 1.024 (1.001-1.035) Urine Protein 1+ H (Negative) Urine Glucose (UA) Negative (Negative) Urine Ketones Negative (Negative) Urine Blood Negative (Negative) Urine Nitrite Negative (Negative) Urine Bilirubin Negative (Negative) Urine Urobilinogen <2.0 (<2.0) mg/dL Ur Leukocyte Esterase Negative (Negative) Urine RBC 2 (0-5) /hpf Urine WBC 1 (0-5) /hpf Ur Squamous Epith Cells <1 (0-4) /hpf Urine Bacteria Rare H (None) /hpf Urine Mucus Occasional H (None) /hpf Disposition Clinical Impression: Abdominal pain Disposition: HOME SELF-CARE Condition: Good Instructions (If sedation given, give patient instructions): Abdominal Pain (ED) Prescriptions: Famotidine [Pepcid] 20 mg PO BID #14 tablet Is patient prescribed a controlled substance at d/c from ED?: No Referrals: Eliezer Durán DO [Primary Care Provider] - 1-2 days
== END 2020-11-05 22:57 | disposition home or self-care (01) ==
LOC: EC 17:21
DX: R10.13 Epigastric pain (principal); F17.200 Nicotine dependence, unspecified, uncomplicated; Z90.49 Acquired absence of other specified parts of digestive tract
CPT/HCPCS: 36415; 74018; 76705; 80053; 81001; 82150; 83605; 83690; 85025; 96361; 96374; 96375; 99284

== ENCOUNTER 2021-12-25 23:19 | Emergency (ER) | payer BC, OTHER ==
[2021-12-25 23:31] VITALS: TEMP 96.3
[2021-12-25] MEDS ORDERED: SODIUM CHLORIDE 0.9% 1,000 ML IV STA (23:31)
[2021-12-25 23:49] LABS: Basophils % (A) 0 %; Eosinophils # (A) 0.1 k/uL (0-0.7); Eosinophils % (A) 2 %; HGB 14.3 gm/dL (13.0-17.5); Lymphocytes # (A) 2.5 k/uL (1.0-4.8); Lymphocytes % (A) 39 %; MCH 29.6 pg (25.0-35.0); MCHC 32.6 g/dL (31.0-37.0); MCV 90.9 fL (80.0-100.0); Mean Platelet Volume 7.8; Monocytes # (A) 0.3 k/uL (0-1.0); Monocytes % (A) 5 %; Neutrophils # (A) 3.4 k/uL (1.3-7.7); Neutrophils % (A) 52 %; Platelet Count 266 k/uL (150-450); RBC 4.84 m/uL (4.30-5.90); RDW 13.1 % (11.5-15.5); WBC 6.5 k/uL (3.8-10.6)
[2021-12-26 00:04] LABS: ALT 16 U/L (4-49); AST 44 U/L (17-59); African American GFR (CKD) >90 (>60 ml/min/1.73 sqM); Albumin 4.4 g/dL (3.5-5.0); Alkaline Phosphatase 48 U/L (38-126); Anion Gap 11 mmol/L; Blood Urea Nitrogen 13 mg/dL (9-20); Calcium 8.9 mg/dL (8.4-10.2); Carbon Dioxide 21 mmol/L (22-30); Chloride 110 mmol/L (98-107); Glucose 98 mg/dL (74-99); Non-African American GFR(CKD) >90 (>60 ml/min/1.73 sqM); Potassium 3.7 mmol/L (3.5-5.1); Sodium 142 mmol/L (137-145); Total Bilirubin 1.2 mg/dL (0.2-1.3); Total Protein 6.9 g/dL (6.3-8.2)
[2021-12-26 00:11] LABS: Alcohol 140 mg/dL
--- NOTE | 2021-12-26 00:48 | ED ---
Alcohol HPI - General Chief Complaint: Alcohol Stated Complaint: ETOH Time Seen by Provider: 12/25/21 23:21 Source: EMS Mode of arrival: EMS Limitations: altered mental status - History of Present Illness Initial Comments: Patient is 26-year-old man brought for alcohol intoxication. History is given mainly from the patient's was at bedside. She states that he had been very upset about a job application and began drinking heavily tonight. He did not have any fall or injury at home. When he became very intoxicated ambulance was called. He has had some vomiting with no hematemesis or coffee-ground emesis. 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) Previous Visits for Alcohol Intoxication?: No Recent Trauma: No Associated Symptoms: vomiting Treatments Prior to Arrival: none Chronic Alcohol Use: No - Related Data Home Medications Medication Instructions Recorded Confirmed Ibuprofen [Motrin Ib] 800 mg PO Q8H PRN 12/04/19 11/05/20 Previous Rx's Medication Instructions Recorded Famotidine [Pepcid] 20 mg PO BID #14 tablet 11/05/20 Allergies Allergy/AdvReac Type Severity Reaction Status Date / Time cotton seed oil Allergy Unknown Uncoded 11/05/20 20:19 Review of Systems ROS Statement: Those systems with pertinent positive or pertinent negative responses have been documented in the HPI. ROS Other: All systems not noted in ROS Statement are negative. Limitations: ROS unobtainable due to patients medical condition Respiratory: Denies: dyspnea Cardiovascular: Denies: chest pain Neurological: Denies: headache Past Medical History Past Medical History: No Reported History History of Any Multi-Drug Resistant Organisms: None Reported Past Surgical History: Appendectomy, Ear Surgery Past Psychological History: No Psychological Hx Reported Smoking Status: Current every day smoker Past Alcohol Use History: None Reported Past Drug Use History: None Reported General Exam General appearance: appears intoxicated Head exam: Present: atraumatic, normocephalic Eye exam: Present: normal appearance, PERRL, nystagmus. Absent: scleral icterus, conjunctival injection Respiratory exam: Present: normal lung sounds bilaterally. Absent: respiratory distress, wheezes, rales, rhonchi, stridor Cardiovascular Exam: Present: regular rate, normal rhythm, normal heart sounds. Absent: systolic murmur, diastolic murmur, rubs, gallop GI/Abdominal exam: Present: soft. Absent: distended, tenderness, guarding, rebound, rigid, mass Extremities exam: Present: normal inspection, normal capillary refill. Absent: pedal edema, calf tenderness Back exam: Present: normal inspection. Absent: CVA tenderness (R), CVA tenderness (L) Neurological exam: Present: alert Skin exam: Present: warm, dry, intact, normal color. Absent: rash Course Vital Signs 12/25/21 12/26/21 23:23 01:02 Temperature 96.3 F L Pulse Rate 70 55 L Respiratory 22 19 Rate Blood Pressure 120/78 115/60 O2 Sat by Pulse 100 99 Oximetry Medical Decision Making - Lab Data Result diagrams: 12/25/21 23:34 12/25/21 23:34 Lab Results 12/25/21 12/25/21 Range/Units 23:34 23:34 WBC 6.5 (3.8-10.6) k/uL RBC 4.84 (4.30-5.90) m/uL Hgb 14.3 (13.0-17.5) gm/dL Hct 44.0 (39.0-53.0) % MCV 90.9 (80.0-100.0) fL MCH 29.6 (25.0-35.0) pg MCHC 32.6 (31.0-37.0) g/dL RDW 13.1 (11.5-15.5) % Plt Count 266 (150-450) k/uL MPV 7.8 Neutrophils % 52 % Lymphocytes % 39 % Monocytes % 5 % Eosinophils % 2 % Basophils % 0 % Neutrophils # 3.4 (1.3-7.7) k/uL Lymphocytes # 2.5 (1.0-4.8) k/uL Monocytes # 0.3 (0-1.0) k/uL Eosinophils # 0.1 (0-0.7) k/uL Basophils # 0.0 (0-0.2) k/uL Sodium 142 (137-145) mmol/L Potassium 3.7 (3.5-5.1) mmol/L Chloride 110 H (98-107) mmol/L Carbon Dioxide 21 L (22-30) mmol/L Anion Gap 11 mmol/L BUN 13 (9-20) mg/dL Creatinine 0.83 (0.66-1.25) mg/dL Est GFR (CKD-EPI)AfAm >90 (>60 ml/min/1.73 sqM) Est GFR (CKD-EPI)NonAf >90 (>60 ml/min/1.73 sqM) Glucose 98 (74-99) mg/dL Calcium 8.9 (8.4-10.2) mg/dL Total Bilirubin 1.2 (0.2-1.3) mg/dL AST 44 (17-59) U/L ALT 16 (4-49) U/L Alkaline Phosphatase 48 (38-126) U/L Total Protein 6.9 (6.3-8.2) g/dL Albumin 4.4 (3.5-5.0) g/dL Serum Alcohol 140 mg/dL Disposition Clinical Impression: Alcoholic intoxication Disposition: HOME SELF-CARE Condition: Good Instructions (If sedation given, give patient instructions): Alcohol Intoxication (ED) Is patient prescribed a controlled substance at d/c from ED?: No Referrals: Eliezer Durán DO [Primary Care Provider] - 1-2 days
--- NOTE | 2021-12-26 01:35 | XR ---
EXAMINATION TYPE: XR chest 1V portable DATE OF EXAM: 12/25/2021 COMPARISON: 12/04/2019 HISTORY: Vomiting. Altered mental status. TECHNIQUE: Single view FINDINGS: Heart and mediastinum are normal. Lungs are clear. Diaphragm is normal. Bony thorax appears normal. IMPRESSION: Normal chest. No change.
[2021-12-26] MEDS ORDERED: ONDANSETRON 4 MG/2 ML VIAL IVP STA (03:22)
[2021-12-26 06:08] VITALS: BP 114/58; PULSE 58; RESP 20
== END 2021-12-26 06:38 | disposition home or self-care (01) ==
LOC: EC 23:19
DX: F10.129 Alcohol abuse with intoxication, unspecified (principal); F17.200 Nicotine dependence, unspecified, uncomplicated; Y90.6 Blood alcohol level of 120-199 mg/100 ml; Z91.09 Other allergy status, other than to drugs and biological substances
CPT/HCPCS: 36415; 80053; 85025; 80320; 71045; 99284; 96374; 96361 ×2; J2405

== ENCOUNTER 2022-11-15 20:01 | Emergency (ER) | payer OTHER, BC ==
[2022-11-15 20:07] VITALS: RESP 18
[2022-11-15] MEDS ORDERED: KETOROLAC 15 MG/ML 1 ML VIAL IM STA (20:37)
--- NOTE | 2022-11-15 20:44 | ED ---
General Adult HPI - General Chief complaint: Extremity Injury, Upper Stated complaint: Left shoulder pain Time Seen by Provider: 11/15/22 20:10 Source: patient, RN notes reviewed Mode of arrival: ambulatory Limitations: no limitations - History of Present Illness Initial comments: 27-year-old male presents to the emergency department chief complaint of left shoulder pain 1 day. He states that he is in the [employer] and was doing a very intense workout involving pullups and pushups and started developing intense pain in his left shoulder. He states that he is having difficulty raising his arm above his head. He reports swelling in his left hand. He was seen at [facility] where x-rays were obtained which are negative for fracture. He states that he has taken Tylenol with minimal improvement. He states that he has been icing the area and while icing has improvement in the swelling. - Related Data Home Medications Medication Instructions Recorded Confirmed Ibuprofen [Motrin Ib] 800 mg PO Q8H PRN 12/04/19 11/05/20 Previous Rx's Medication Instructions Recorded Famotidine [Pepcid] 20 mg PO BID #14 tablet 11/05/20 traMADol HCl [Ultram] 50 mg PO Q6H PRN #12 tab 11/15/22 Allergies Allergy/AdvReac Type Severity Reaction Status Date / Time cotton seed oil Allergy Unknown Uncoded 11/15/22 20:07 Review of Systems ROS Statement: Those systems with pertinent positive or pertinent negative responses have been documented in the HPI. ROS Other: All systems not noted in ROS Statement are negative. Past Medical History Past Medical History: No Reported History History of Any Multi-Drug Resistant Organisms: None Reported Past Surgical History: Appendectomy, Ear Surgery Past Psychological History: No Psychological Hx Reported Smoking Status: Vaper Past Alcohol Use History: None Reported Past Drug Use History: None Reported General Exam Limitations: no limitations General appearance: alert, in no apparent distress Head exam: Present: atraumatic, normocephalic, normal inspection Eye exam: Present: normal appearance, PERRL, EOMI. Absent: scleral icterus, conjunctival injection, periorbital swelling ENT exam: Present: normal exam, mucous membranes moist Neck exam: Present: normal inspection. Absent: tenderness, meningismus, lymphadenopathy Respiratory exam: Present: normal lung sounds bilaterally. Absent: respiratory distress, wheezes, rales, rhonchi, stridor Cardiovascular Exam: Present: regular rate, normal rhythm, normal heart sounds. Absent: systolic murmur, diastolic murmur, rubs, gallop, clicks Extremities exam: Present: tenderness, normal capillary refill, other (Decreased range of motion in flexion and abduction plane of the left shoulder, normal range of motion at the elbow, wrist, fingers, radial pulses 2+, mild edema to the left hand, normal capillary refill) Back exam: Present: normal inspection Neurological exam: Present: alert, oriented X3 Psychiatric exam: Present: normal affect, normal mood Skin exam: Present: warm, dry, intact, normal color. Absent: rash Course Vital Signs 11/15/22 11/15/22 20:04 21:52 Temperature 98 F 97.9 F Pulse Rate 89 59 L Respiratory 18 18 Rate Blood Pressure 183/100 124/70 O2 Sat by Pulse 100 96 Oximetry Medical Decision Making - Medical Decision Making Was pt. sent in by a medical professional or institution (, PA, FAST FOOD SHIFT LEAD, urgent care, hospital, or shelter...) When possible be specific @ -No Did you speak to anyone other than the patient for history (EMS, parent, family, police, friend...)? What history was obtained from this source @ -No Did you review nursing and triage notes (agree or disagree)? Why? @ -I reviewed and agree with nursing and triage notes Were old charts reviewed (outside hosp., previous admission, EMS record, old EKG, old radiological studies, urgent care reports/EKG's, shelter records)? Report findings @ -No old charts were reviewed Differential Diagnosis (chest pain, altered mental status, abdominal pain women, abdominal pain men, vaginal bleeding, weakness, fever, dyspnea, syncope, headache, dizziness, GI bleed, back pain, seizure, CVA, palpatations, mental health, musculoskeletal)? @ -Differential Musculoskeletal Muscular strain, contusion, ligament sprain, fracture, arthritis, septic arthritis, bursitis, cellulitis, muscle spasm, nerve compression, DVT, arterial occlusion, herpes zoster, electrolyte abnormality, tumor.... This is not meant to be in all inclusive list EKG interpreted by me (3pts min.). @ -None X-rays interpreted by me (1pt min.). @ -None done CT interpreted by me (1pt min.). @ -None done U/S interpreted by me (1pt. min.). @ -None done What testing was considered but not performed or refused? (CT, X-rays, U/S, labs)? Why? @ -X-rays of the left shoulder were considered but patient had been seen earlier today at an urgent care clinic where x-rays were performed, patient has the report from x-rays which was negative for acute fracture What meds were considered but not given or refused? Why? @ -None Did you discuss the management of the patient with other professionals (professionals i.e. DrDedra, PA, FAST FOOD SHIFT LEAD, lab, RT, psych nurse, home health care social worker, political worker, teacher, strike operations officer, corrections caseworker)? Give summary @ -No Was smoking cessation discussed for >3mins.? @ -No Was critical care preformed (if so, how long)? @ -No Were there social determinants of health that impacted care today? How? (Homelessness, low income, unemployed, alcoholism, drug addiction, transportation, low edu. Level, literacy, decrease access to med. care, shelter, rehab)? @ -No Was there de-escalation of care discussed even if they declined (Discuss DNR or withdrawal of care, Hospice)? DNR status @ -No What co-morbidities impacted this encounter? (DM, HTN, Smoking, COPD, CAD, Cancer, CVA, ARF, Chemo, Hep., AIDS, mental health diagnosis, sleep apnea, morbid obesity)? @ -None Was patient admitted / discharged? Hospital course, mention meds given and route, prescriptions, significant lab abnormalities, going to OR and other pertinent info. @ -Discharged. Patient presented to the emergency department with chief complaint of left shoulder pain. Patient was evaluated at urgent care earlier today and was told to return if he had worsening symptoms. Patient states that he has been taken Tylenol at home but has not taken any Motrin. He had x-rays done at urgent care earlier which showed no acute fractures according to the report. Patient was given a shot of Toradol which he states improved his pain. Patient was evaluated by myself and my attending, Dr. Wall. Discussed with the patient that this is likely a rotator cuff injury and he needs to follow up with primary care provider and orthopedics if the patient does not improve within the next 1-2 weeks. Patient was given orthopedic information for follow- up. Patient was given 3 days of tramadol for pain. Undiagnosed new problem with uncertain prognosis? @ -No Drug Therapy requiring intensive monitoring for toxicity (Heparin, Nitro, Insulin, Cardizem)? @ -No Were any procedures done? @ -No Diagnosis/symptom? @ -Left shoulder pain Acute, or Chronic, or Acute on Chronic? @ -Acute Uncomplicated (without systemic symptoms) or Complicated (systemic symptoms)? @ -Uncomplicated Side effects of treatment? @ -No Exacerbation, Progression, or Severe Exacerbation? @ -No Poses a threat to life or bodily function? How? (Chest pain, [place], [place], pneumonia, PE, COPD, DKA, ARF, appy, cholecystitis, CVA, Diverticulitis, Homicidal, Suicidal, threat to staff... and all critical care pts) @ -No Disposition Clinical Impression: Strain of shoulder Disposition: HOME SELF-CARE Condition: Stable Instructions (If sedation given, give patient instructions): Rotator Cuff Injury (ED), P.R.I.C.E. Treatment (ED) Additional Instructions: Follow-up with orthopedics for further evaluation if you do not have any improvement in symptoms over the next week. Please return to the emergency department for new or worsening symptoms. Mr. Patton was given Toradol while in the emergency department. This is an anti- inflammatory medication and should not show up on a drug screen. Prescriptions: traMADol HCl [Ultram] 50 mg PO Q6H PRN #12 tab PRN Reason: Pain Is patient prescribed a controlled substance at d/c from ED?: Yes If prescribed controlled substance>3 days was MAPS reviewed?: Prescribed <3 Days Referrals: Eliezer Durán DO [Primary Care Provider] - 1-2 days William Moreno DO [Doctor of Osteopathic Medicine] - 1-2 days Time of Disposition: 21:36
[2022-11-15 21:54] VITALS: BP 124/70; PULSE 59; TEMP 97.9
== END 2022-11-15 21:53 | disposition home or self-care (01) ==
LOC: EC 20:01
DX: S46.912A Strain of unspecified muscle, fascia and tendon at shoulder and upper arm level, left arm, initial encounter (principal); F17.290 Nicotine dependence, other tobacco product, uncomplicated; Z88.8 Allergy status to other drugs, medicaments and biological substances; X58.XXXA Exposure to other specified factors, initial encounter
CPT/HCPCS: 99283; 96372; J1885

== ENCOUNTER 2023-09-27 15:37 | Emergency (ER) | payer BC, OTHER ==
--- NOTE | 2023-09-27 16:28 | ED ---
General Adult HPI - General Chief complaint: Wound/Laceration Stated complaint: Laceration on L index finger Time Seen by Provider: 09/27/23 15:50 Source: patient, RN notes reviewed Mode of arrival: ambulatory Limitations: no limitations - History of Present Illness Initial comments: 28-year-old male presents to the emergency department for evaluation of laceration to left index finger. Patient states that he was cutting a tag off of a car seat with his pocket knife when he accidentally cut his finger. He states that this occurred just prior to arrival. He notes full range of motion to the finger. He states that his last tetanus vaccination was within the past year. - Related Data Home Medications Medication Instructions Recorded Confirmed Ibuprofen [Motrin Ib] 800 mg PO Q8H PRN 12/04/19 11/05/20 Previous Rx's Medication Instructions Recorded Famotidine [Pepcid] 20 mg PO BID #14 tablet 11/05/20 traMADol HCl [Ultram] 50 mg PO Q6H PRN #12 tab 11/15/22 Allergies Allergy/AdvReac Type Severity Reaction Status Date / Time cotton seed oil Allergy Unknown Uncoded 09/27/23 15:46 Review of Systems ROS Statement: Those systems with pertinent positive or pertinent negative responses have been documented in the HPI. ROS Other: All systems not noted in ROS Statement are negative. Past Medical History Past Medical History: No Reported History History of Any Multi-Drug Resistant Organisms: None Reported Past Surgical History: Appendectomy, Ear Surgery Past Psychological History: No Psychological Hx Reported Smoking Status: Vaper Past Alcohol Use History: None Reported Past Drug Use History: None Reported General Exam Limitations: no limitations General appearance: alert, in no apparent distress Head exam: Present: atraumatic, normocephalic, normal inspection Eye exam: Present: normal appearance, PERRL, EOMI. Absent: scleral icterus, conjunctival injection, periorbital swelling Respiratory exam: Present: normal lung sounds bilaterally. Absent: respiratory distress, wheezes, rales, rhonchi, stridor Cardiovascular Exam: Present: regular rate, normal rhythm, normal heart sounds. Absent: systolic murmur, diastolic murmur, rubs, gallop, clicks Extremities exam: Present: full ROM, tenderness, normal capillary refill, other (radial pulses 2+, ) Neurological exam: Present: alert, oriented X3 Psychiatric exam: Present: normal affect, normal mood Skin exam: Present: warm, dry, normal color, other (1.5cm laceration to left distal index finger ). Absent: intact Course Vital Signs 09/27/23 09/27/23 15:44 17:31 Temperature 98.1 F 97.9 F Pulse Rate 73 58 L Respiratory 20 18 Rate Blood Pressure 131/86 124/70 O2 Sat by Pulse 99 100 Oximetry Medical Decision Making - Medical Decision Making Was pt. sent in by a medical professional or institution (ABBEY Alonso, CAR REPAIRER, urgent care, hospital, or long term...) When possible be specific @ -No Did you speak to anyone other than the patient for history (EMS, parent, family, police, friend...)? What history was obtained from this source @ -No Did you review nursing and triage notes (agree or disagree)? Why? @ -I reviewed and agree with nursing and triage notes Were old charts reviewed (outside hosp., previous admission, EMS record, old EKG, old radiological studies, urgent care reports/EKG's, long term records)? Report findings @ -No old charts were reviewed Differential Diagnosis (chest pain, altered mental status, abdominal pain women, abdominal pain men, vaginal bleeding, weakness, fever, dyspnea, syncope, headache, dizziness, GI bleed, back pain, seizure, CVA, palpatations, mental health, musculoskeletal)? @ -Laceration, abrasion, tendon injury, fracture, this list is not all inclusive EKG interpreted by me (3pts min.). @ -None X-rays interpreted by me (1pt min.). @ -None done CT interpreted by me (1pt min.). @ -None done U/S interpreted by me (1pt. min.). @ -None done What testing was considered but not performed or refused? (CT, X-rays, U/S, labs)? Why? @ -None What meds were considered but not given or refused? Why? @ -None Did you discuss the management of the patient with other professionals (professionals i.e. ABBEY Alonso, CAR REPAIRER, lab, RT, psych nurse, social media sr strategy manager, verifying specialist, teacher, press officer, immigration case worker)? Give summary @ -No Was smoking cessation discussed for >3mins.? @ -No Was critical care preformed (if so, how long)? @ -No Were there social determinants of health that impacted care today? How? (Homelessness, low income, unemployed, alcoholism, drug addiction, transportation, low edu. Level, literacy, decrease access to med. care, halfway, rehab)? @ -No Was there de-escalation of care discussed even if they declined (Discuss DNR or withdrawal of care, Hospice)? DNR status @ -No What co-morbidities impacted this encounter? (DM, HTN, Smoking, COPD, CAD, Cancer, CVA, ARF, Chemo, Hep., AIDS, mental health diagnosis, sleep apnea, morbid obesity)? @ -None Was patient admitted / discharged? Hospital course, mention meds given and route, prescriptions, significant lab abnormalities, going to OR and other pertinent info. @ -Discharge. Patient presented to the emergency department for evaluation of laceration to the left index finger. Wound was cleaned, laceration repaired with sutures. Patient up-to-date on his tetanus vaccination. Advised on suture removal time in wound care. Patient understanding agreeable plan. Patient stable at time of discharge. Case discussed with Dr. Chambers Undiagnosed new problem with uncertain prognosis? @ -No Drug Therapy requiring intensive monitoring for toxicity (Heparin, Nitro, Insulin, Cardizem)? @ -No Were any procedures done? @ -Laceration repair Diagnosis/symptom? @ -Laceration Acute, or Chronic, or Acute on Chronic? @ -acute Uncomplicated (without systemic symptoms) or Complicated (systemic symptoms)? @ -uncomplicated Side effects of treatment? @ -No Exacerbation, Progression, or Severe Exacerbation? @ -No Poses a threat to life or bodily function? How? (Chest pain, [place], [place], pneumonia, PE, COPD, DKA, ARF, appy, cholecystitis, CVA, Diverticulitis, Homicidal, Suicidal, threat to staff... and all critical care pts) @ -No Disposition Clinical Impression: Laceration Disposition: HOME SELF-CARE Condition: Stable Instructions (If sedation given, give patient instructions): Care For Your Stitches (ED) Additional Instructions: Have sutures removed in around 7 days. Keep wound clean and dry. Follow up with your primary care provider. Return to the emergency department for new or worsening symptoms. Is patient prescribed a controlled substance at d/c from ED?: No Referrals: Eliezer Durán, [Primary Care Provider] - 1-2 days
[2023-09-27] MEDS: LIDOCAINE 1% INJ 10MG/ML (20 ML MDV) SQ ONE (16:32)
[2023-09-27 17:52] VITALS: BP 124/70; PULSE 58; RESP 18; TEMP 97.9
== END 2023-09-27 17:33 | disposition home or self-care (01) ==
LOC: EC 15:37
DX: S61.211A Laceration without foreign body of left index finger without damage to nail, initial encounter (principal); F17.290 Nicotine dependence, other tobacco product, uncomplicated; Z88.8 Allergy status to other drugs, medicaments and biological substances; W26.0XXA Contact with knife, initial encounter
CPT/HCPCS: 99282; 12001; J2001

== ENCOUNTER 2024-02-10 16:18 | Emergency (ER) | payer BC, OTHER ==
[2024-02-10 16:37] VITALS: TEMP 98.1
[2024-02-10 16:41] LABS: Glucose,Whole Blood 71 mg/dL (70-110)
--- NOTE | 2024-02-10 16:47 | ED ---
Neuro HPI - General Chief Complaint: Neuro Symptoms/Deficit Stated Complaint: stroke like symptoms Source: EMS Mode of arrival: EMS - History of Present Illness Is the patient presenting with stroke symptoms?: Yes Initial Comments: 28-year-old male with no reported past medical history who presents emergency department with strokelike symptoms. He reports around 930 this morning he started to feel dizzy and "off". He had worked out this morning from 12 04-01 03. He then went into work. He went home from work as he did not feel well. His noted that he had left-sided facial droop. He has some associated dysarthria. He reports to numbness in his left arm and left leg. He states that over the course of the day the symptoms have gotten worse. He tried to "sleep it off". When he woke up he had complete numbness in his left hand. He went into an urgent care who sent him into the hospital for further evaluation. 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 He has no history of stroke. Reports that his blood pressure has been high at home he has no recorded medical history and does not take any prescribed medications daily. No fevers. No head trauma. States he was not doing any significant heavy lifting during his workout. No other alleviating, precipitating or modifying factors - Related Data Home Medications: Home Medications Medication Instructions Recorded Confirmed No Known Home Medications 02/10/24 02/10/24 Allergies/Adverse Reactions: Allergies Allergy/AdvReac Type Severity Reaction Status Date / Time cotton seed oil Allergy Unknown Uncoded 02/10/24 17:14 Review of Systems ROS Statement: Those systems with pertinent positive or pertinent negative responses have been documented in the HPI. ROS Other: All systems not noted in ROS Statement are negative. General Exam General appearance: alert Eye exam: Present: other (Paralysis of the left upper and lower face) ENT exam: Present: normal exam, mucous membranes moist Neck exam: Present: normal inspection. Absent: tenderness, meningismus, lymphadenopathy Respiratory exam: Present: normal lung sounds bilaterally Cardiovascular Exam: Present: regular rate, normal rhythm, normal heart sounds. Absent: systolic murmur, diastolic murmur, rubs, gallop, clicks Extremities exam: Present: other (Decreased seaman strength of the left hand. Drift of the left leg. Decreased sensation to the left arm and leg) Neurological exam: Present: alert Psychiatric exam: Present: normal affect, normal mood Skin exam: Present: warm, dry, intact, normal color. Absent: rash Stroke MDM - Lab Data Result diagrams: 02/10/24 16:38 Lab Results 02/10/24 02/10/24 Range/Units 16:38 16:40 WBC 6.6 (3.8-10.6) k/uL RBC 5.50 (4.30-5.90) m/uL Hgb 16.4 (13.0-17.5) gm/dL Hct 49.5 (39.0-53.0) % MCV 90.1 (80.0-100.0) fL MCH 29.9 (25.0-35.0) pg MCHC 33.1 (31.0-37.0) g/dL RDW 12.8 (11.5-15.5) % Plt Count 276 (150-450) k/uL MPV 7.6 Neutrophils % 65 % Lymphocytes % 27 % Monocytes % 5 % Eosinophils % 2 % Basophils % 0 % Neutrophils # 4.2 (1.3-7.7) k/uL Lymphocytes # 1.8 (1.0-4.8) k/uL Monocytes # 0.3 (0-1.0) k/uL Eosinophils # 0.1 (0-0.7) k/uL Basophils # 0.0 (0-0.2) k/uL POC Glucose (mg/dL) 71 (70-110) mg/dL POC Glu [employer] Tech ID September - Medical Decision Making Was pt. sent in by a medical professional or institution (, PA, CARE ANALYST, urgent care, hospital, or fpc...) When possible be specific @ -Patient was sent in from urgent care Did you speak to anyone other than the patient for history (EMS, parent, family, police, friend...)? What history was obtained from this source @ -Spoke with EMS for history Did you review nursing and triage notes (agree or disagree)? Why? @ -I reviewed and agree with nursing and triage notes Were old charts reviewed (outside hosp., previous admission, EMS record, old EKG, old radiological studies, urgent care reports/EKG's, fpc records)? Report findings @ -No old charts were reviewed Differential Diagnosis (chest pain, altered mental status, abdominal pain women, abdominal pain men, vaginal bleeding, weakness, fever, dyspnea, syncope, headache, dizziness, GI bleed, back pain, seizure, CVA, palpatations, mental health, musculoskeletal)? @ -Differential CVA Ischemic stroke, hemorrhagic stroke, brain tumor, atypical migraine, Wernicke's encephalopathy, seizure, multiple sclerosis, meningitis, encephalitis, hypoglycemia, Guillain-Bond, electrolytes disturbance, myasthenia gravis.... This is not meant to be an all-inclusive list EKG interpreted by me (3pts min.). @ -Yes and demonstrates sinus rhythm with a rate of 74. ND interval 135. QRS 112. QTc of 423. No acute ST segment elevations or depressions. Right bundle branch block X-rays interpreted by me (1pt min.). @ -yes and demonstrates no acute process CT interpreted by me (1pt min.). @ -yes and demonstrates a right sided brain mass in the right middle cranial fossa U/S interpreted by me (1pt. min.). @ -None done What testing was considered but not performed or refused? (CT, X-rays, U/S, labs)? Why? @ -None What meds were considered but not given or refused? Why? @ -None Did you discuss the management of the patient with other professionals (professionals i.e. , PA, CARE ANALYST, lab, RT, psych nurse, socially responsible investment adviser, type inspector, teacher, conservation officer, case therapist)? Give summary @ -Spoke with Dr. Potts. As we do not have neurosurgery capabilities he did recommend transfer to [facility] Was smoking cessation discussed for >3mins.? @ -No Was critical care preformed (if so, how long)? @ -yes, 40 minutes for stroke activation Were there social determinants of health that impacted care today? How? (Homelessness, low income, unemployed, alcoholism, drug addiction, transportation, low edu. Level, literacy, decrease access to med. care, long term, rehab)? @ -No Was there de-escalation of care discussed even if they declined (Discuss DNR or withdrawal of care, Hospice)? DNR status @ -No What co-morbidities impacted this encounter? (DM, HTN, Smoking, COPD, CAD, Cancer, CVA, ARF, Chemo, Hep., AIDS, mental health diagnosis, sleep apnea, morbid obesity)? @ -None Was patient admitted / discharged? Hospital course, mention meds given and route, prescriptions, significant lab abnormalities, going to OR and other pertinent info. @ -Upon arrival patient was seen and evaluated in hallway 10. Patient's stroke scale is positive. NIH is 9. Last known well is 9:30 AM. Patient is then moved to trauma bay 4. Code stroke is activated. CT and CTA is performed. Laboratory studies are conducted. Performed which does demonstrate a 1.7 cm area of hypodensity within the right middle cranial fossa. This is consistent with possible ischemia versus mass. I called and spoke with Dr. Potts. Not see a large vessel occlusion and therefore is more concern for brain mass. We do not have neurosurgery capabilities. Recommends transfer down to [facility]. I did call and speak with Dr. Neal. She does accept transfer. Patient will be transported via ALS ambulance. COBRA forms are signed. Patient transferred in stable condition Undiagnosed new problem with uncertain prognosis? @ -Yes Drug Therapy requiring intensive monitoring for toxicity (Heparin, Nitro, Insulin, Cardizem)? @ -No Were any procedures done? @ -No Diagnosis/symptom? @ -Acute left facial droop, acute left upper and lower extremity weakness and paresthesias, right middle cranial fossa hypodensitypossible mass Acute, or Chronic, or Acute on Chronic? @ -Acute Uncomplicated (without systemic symptoms) or Complicated (systemic symptoms)? @ -Complicated Side effects of treatment? @ -No Exacerbation, Progression, or Severe Exacerbation? @ -No Poses a threat to life or bodily function? How? (Chest pain, [place], [place], pneumonia, PE, COPD, DKA, ARF, appy, cholecystitis, CVA, Diverticulitis, Homicidal, Suicidal, threat to staff... and all critical care pts) @ -yes as patient has possible brain mass Past Medical History Past Medical History: No Reported History History of Any Multi-Drug Resistant Organisms: None Reported Past Surgical History: Appendectomy, Ear Surgery Past Psychological History: No Psychological Hx Reported Smoking Status: Vaper Past Alcohol Use History: None Reported Past Drug Use History: None Reported Course Vital Signs 02/10/24 02/10/24 02/10/24 16:21 16:35 16:43 Temperature 98.1 F Pulse Rate 74 80 82 Respiratory 18 18 18 Rate Blood Pressure 142/77 142/84 128/80 O2 Sat by Pulse 99 100 97 Oximetry 02/10/24 16:54 Temperature Pulse Rate 73 Respiratory 16 Rate Blood Pressure 130/80 O2 Sat by Pulse 98 Oximetry Disposition Clinical Impression: Brain mass, Left-sided weakness Disposition: OTHER INSTITUTION NOT DEFINED Condition: Serious Is patient prescribed a controlled substance at d/c from ED?: No Referrals: Sunil Zimmerman MD [Primary Care Provider] - 1-2 days Time of Disposition: 17:35 - Out of Hospital Transfer - Req. Specs Out of Hospital Transfer - Requested Specifics: Other Emergency Center ([facility])
[2024-02-10 16:56] VITALS: PULSE 73
--- NOTE | 2024-02-10 16:58 | CT ---
EXAMINATION TYPE: CODE STROKE: CT brain wo contr DATE OF EXAM: 02/10/2024 COMPARISON: 03/11/2015 INDICATION: cva DLP: 1156 mGycm, Automated exposure control for dose reduction was used. CONTRAST: None CT of the brain is performed utilizing 3 mm thick sections through the posterior fossa and 3 mm thick sections through the remaining calvarium. Study is performed within 24 hours of arrival to the hosp ital. No abnormal hyperdensity is present to suggest an acute intracranial hemorrhage. No mass lesion is evident. Luna-white matter interface appears preserved. There is a hypodense area within the right middle cranial fossa measuring approximately 1.7 cm in berenice meter. This appears to extend through the cortex. A small right temporal lobe infarct is not excluded . This is an interval change from comparison. Differential could include myelomalacia from prior trau ma. Additional evaluation with contrast MRI is recommended. No additional areas suspicious for acute infarct identified Ventricles and sulci are appropriate for the patient age. Paranasal sinuses and mastoid air cells within the [id number] are clear. IMPRESSION: 1. 1.7 cm area of hypodensity extending through the cortex within the inferior lateral right tempor al lobe. Infarction be considered. Differential would include posttraumatic encephalomalacia. Subtle underlying mass is not excluded. Additional workup with contrast-enhanced MRI is recommended.
[2024-02-10 17:12] LABS: Basophils % (A) 0 %; Eosinophils # (A) 0.1 k/uL (0-0.7); Eosinophils % (A) 2 %; HCT 49.5 % (39.0-53.0); HGB 16.4 gm/dL (13.0-17.5); Lymphocytes # (A) 1.8 k/uL (1.0-4.8); Lymphocytes % (A) 27 %; MCH 29.9 pg (25.0-35.0); MCHC 33.1 g/dL (31.0-37.0); MCV 90.1 fL (80.0-100.0); Mean Platelet Volume 7.6; Monocytes # (A) 0.3 k/uL (0-1.0); Monocytes % (A) 5 %; Neutrophils # (A) 4.2 k/uL (1.3-7.7); Neutrophils % (A) 65 %; Platelet Count 276 k/uL (150-450); RDW 12.8 % (11.5-15.5); WBC 6.6 k/uL (3.8-10.6)
--- NOTE | 2024-02-10 17:16 | CT ---
EXAMINATION TYPE: CT angio head neck DATE OF EXAM: 02/10/2024 HISTORY: cva COMPARISON: CT DLP: 648 mGycm. Automated Exposure Control for Dose Reduction was Utilized. TECHNIQUE: CTA scan of the neck is performed with IV Contrast, patient injected with 65 mL of Isovue 370, axial images are obtained, coronal and sagittal reformatted images are reviewed. Three-D recons tructed images are created on an independent workstation and reviewed. Source images are reviewed. FINDINGS: Carotid/Vascular Structures: There is a 3 vessel arch. Common carotid arteries bifurcate into internal and external carotid arteries without flow limiting s tenosis. Right vertebral artery is dominant.. Internal carotid arteries and vertebral arteries are patent to the skull base. Cervical of [place]: Vertebral basilar system appears normal. Posterior cerebral vasculature is unrema rkable. Internal carotid arteries bifurcate normally into A1 and M1 segments. A2 segments are normal. No suspicious vascular anomaly in the right side The anterior communicating artery is patent. The right posterior communicating artery is patent. The left posterior communicating artery is absent. IMPRESSION: 1. No flow-limiting stenosis bilateral carotid bifurcations. 2. Normal [place] of [place]. 3. No vascular anomaly in the right middle cranial fossa lateral right temporal lobe. NASCET criteria was used in interpretation of this exam?
--- NOTE | 2024-02-10 17:43 | XR ---
EXAMINATION TYPE: XR chest 2V DATE OF EXAM: 02/10/2024 COMPARISON: 12/25/2021 INDICATION: Altered mental status TECHNIQUE: Frontal and lateral views of the chest are obtained. FINDINGS: The heart size is normal. The pulmonary vasculature is normal. The lungs are clear. IMPRESSION: 1. No acute pulmonary process.
[2024-02-10 17:55] LABS: ALT 15 U/L (4-49); AST 25 U/L (17-59); African American GFR (CKD) >90 (>60 ml/min/1.73 sqM); Alkaline Phosphatase 42 U/L (38-126); Anion Gap 10 mmol/L; Blood Urea Nitrogen 13 mg/dL (9-20); Calcium 10.1 mg/dL (8.4-10.2); Carbon Dioxide 24 mmol/L (22-30); Chloride 103 mmol/L (98-107); Creatine Kinase 66 U/L (55-170); Glucose 78 mg/dL (74-99); Non-African American GFR(CKD) >90 (>60 ml/min/1.73 sqM); Potassium 4.1 mmol/L (3.5-5.1); Sodium 137 mmol/L (137-145); Total Protein 7.9 g/dL (6.3-8.2)
[2024-02-10] MEDS: SODIUM CHLORIDE 0.9% 1,000 ML IV STA (18:00)
[2024-02-10] MEDS: DEXAMETHASONE SOD PHOSPHATE 10 MG/ML 1 ML VIAL IVP STA (18:01)
[2024-02-10 18:02] LABS: Partial Thromboplastin Time 29.1 sec (22.0-30.0); Prothrombin Time 11.1 sec (10.0-12.5)
[2024-02-10 18:07] VITALS: BP 126/79; RESP 18
== END 2024-02-10 18:30 | disposition other institution (70) ==
LOC: EC 16:18
DX: G93.9 Disorder of brain, unspecified (principal)
CPT/HCPCS: 36415; 70450; 70496; 70498; 71046; 80053; 82550; 84484; 85025; 85610; 85730; 93005; 96374; 99291

== ENCOUNTER 2024-08-09 18:10 | Emergency (ER) | payer BC, OTHER ==
[2024-08-09 18:36] VITALS: TEMP 98.3
--- NOTE | 2024-08-09 19:26 | CT ---
EXAMINATION TYPE: CT brain wo con DATE OF EXAM: 08/09/2024 7:12 PM COMPARISON: 03/11/2015. CLINICAL INDICATION: Male, 29 years old with history of head injury, history of crainiotomy for alton cytom, head injury, craniotomy 6 months ago TECHNIQUE: Brain: Axial CT images of the brain were obtained with coronal and sagittal reformats created and rev iewed. Contrast used: None. Oral contrast used: None. CT DLP: 1160.4 mGycm, Automated exposure control for dose reduction was used. FINDINGS: Brain: Extra-axial spaces: No abnormal extra-axial fluid collections. Ventricular system: Within normal limits Cerebral parenchyma: Suspected post surgical changes to the right temporal lobe with encephalomalacia present No acute intraparenchymal hemorrhage or mass effect. The means-white junction is well differ entiated. Cerebellum: The cerebellar tonsils extend below the foramen magnum up to 3 mm. Mass effect: No evidence of midline shift. Craniotomy changes right temporal region. Intracranial vasculature: unremarkable Soft tissues: Normal. Calvarium/osseous structures: No depressed skull fracture. Paranasal sinuses and mastoid air cells: Mild scattered paranasal sinus disease. Visualized orbits: Orbital contents are intact. IMPRESSION: 1. No acute intracranial process. 2. Postsurgical changes right temporal lobe and right cranium. 3. Mild cerebellar tonsillar ectopia. [facility], , 08/09/2024 7:24 PM
--- NOTE | 2024-08-09 19:59 | ED ---
General Adult HPI - General Chief complaint: Head Injury Stated complaint: head injury Time Seen by Provider: 08/09/24 18:50 Source: patient, RN notes reviewed, old records reviewed Mode of arrival: ambulatory Limitations: no limitations - History of Present Illness Initial comments: Patient is a 29-year-old male who presents emergency department complaining of a mild head injury. 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 Has been progressing well since then. 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 Struck his head on a bolt that was sticking out earlier today at approximately 1 PM. Since that time has been having a dazed feeling as well as a mild headache. Some sensitivity to light. No nausea or vomiting. No sound sensitivity. No chest pain or shortness of breath. No other injuries. Is not on blood thinners. Did not lose consciousness. Originally went to urgent care who sent him here for further evaluation due to his history of the brain tumor and craniotomy for tumor removal. They recommended CT brain. Denies any weakness or numbness. Indicates without issue. - Related Data Home Medications Medication Instructions Recorded Confirmed No Known Home Medications 02/10/24 02/10/24 Allergies Allergy/AdvReac Type Severity Reaction Status Date / Time oxycodone Allergy Rash/Hives Verified 08/09/24 18:36 cotton seed oil Allergy Unknown Uncoded 02/10/24 17:14 Review of Systems ROS Statement: Those systems with pertinent positive or pertinent negative responses have been documented in the HPI. Review of Systems: CONST: Denies fever EYES: Denies blurry vision ENT: Denies nasal congestion C/V: Denies Chest pain RESP: Denies shortness of breath GI: Denies abdominal pain : Denies dysuria SKIN: Denies rash. MSK: Denies joint pain. NEURO: Endorses mild headache ROS Other: All systems not noted in ROS Statement are negative. Past Medical History Past Medical History: No Reported History History of Any Multi-Drug Resistant Organisms: None Reported Past Surgical History: Appendectomy, Ear Surgery Additional Past Surgical History / Comment(s): Craniotomy to right temporal lobe r/t brain tumor. Past Psychological History: No Psychological Hx Reported Smoking Status: Vaper Past Alcohol Use History: None Reported Past Drug Use History: None Reported General Exam - General Exam Comments Initial Comments: General: Appears in no acute distress. HEAD: Normal with no signs of head trauma. Negative Collier sign. Negative raccoon eyes. No obvious deformities of the skull. No obvious skull injury or scalp injury. EYES: PERRLA, EOMI, conjunctiva normal, no discharge. Pupils are 3 mm and equal bilaterally. ENT: Hearing grossly intact, normal oropharynx. RESPIRATORY: Clear breath sounds bilaterally. No wheezes, rales, or rhonchi. C/V: Regular rate and rhythm. S1 and S2 auscultated, no edema, peripheral pulses 2+ and intact throughout ABD: Abd is soft, nontender, nondistended EXT: Normal range of motion, no obvious deformity. No neck tenderness to palpation. No spine tenderness to palpation. Pelvis stable. No extremity tenderness to palpation. SKIN: No rashes or lesions observed on exposed skin. NEURO: Alert oriented x 4. NIH is 0. GCS of 15. Ambulates without issue. Limitations: no limitations Course Vital Signs 08/09/24 18:30 Temperature 98.3 F Pulse Rate 90 Respiratory 18 Rate Blood Pressure 161/89 O2 Sat by Pulse 100 Oximetry Medical Decision Making - Medical Decision Making Was pt. sent in by a medical professional or institution (, PA, FLOOR WAXER, urgent care, hospital, or shelter...) When possible be specific @ -No Did you speak to anyone other than the patient for history (EMS, parent, family, police, friend...)? What history was obtained from this source @ -No Did you review nursing and triage notes (agree or disagree)? Why? @ -I reviewed and agree with nursing and triage notes Were old charts reviewed (outside hosp., previous admission, EMS record, old EKG, old radiological studies, urgent care reports/EKG's, shelter records)? Report findings @ -No old charts were reviewed Differential Diagnosis (chest pain, altered mental status, abdominal pain women, abdominal pain men, vaginal bleeding, weakness, fever, dyspnea, syncope, headache, dizziness, GI bleed, back pain, seizure, CVA, palpatations, mental health, musculoskeletal)? @ -Closed head injury, concussion, minor head trauma. This list is not all inclusive. EKG interpreted by me (3pts min.). @ -None done X-rays interpreted by me (1pt min.). @ -None done CT interpreted by me (1pt min.). @ -CT brain reveals postsurgical changes but no obvious acute traumatic injury. U/S interpreted by me (1pt. min.). @ -None done What testing was considered but not performed or refused? (CT, X-rays, U/S, labs)? Why? @ -None What meds were considered but not given or refused? Why? @ -None Did you discuss the management of the patient with other professionals (professionals i.e. , PA, FLOOR WAXER, lab, RT, psych nurse, social services, sewage reticulation drafting officer, teacher, home lending officer, immigration case worker)? Give summary @ -No Was smoking cessation discussed for >3mins.? @ -No Was critical care preformed (if so, how long)? @ -No Were there social determinants of health that impacted care today? How? (Homelessness, low income, unemployed, alcoholism, drug addiction, transportation, low edu. Level, literacy, decrease access to med. care, fpc, rehab)? @ -No Was there de-escalation of care discussed even if they declined (Discuss DNR or withdrawal of care, Hospice)? DNR status @ -No What co-morbidities impacted this encounter? (DM, HTN, Smoking, COPD, CAD, Cancer, CVA, ARF, Chemo, Hep., AIDS, mental health diagnosis, sleep apnea, morbid obesity)? @ -Prior brain tumor with craniotomy Was patient admitted / discharged? Hospital course, mention meds given and route, prescriptions, significant lab abnormalities, going to OR and other pertinent info. @ -Patient presents emergency department for minor head trauma however patient has a history of craniotomy as well as brain tumor. Sent by urgent care for CT brain. Likely concussion. No obvious injuries. Does not meet trauma activation criteria. Does not meet code coag criteria. We obtain CT brain. Took Tylenol prior to arrival. Declines additional analgesic medications at this time. Vitals are within acceptable limits. He was in agreement this plan. CT brain reveals no obvious acute traumatic injury. Postsurgical changes are present. I updated the patient. He remains asymptomatic other than mild headache. Discussed that he likely has a mild concussion. Believe is safer to be discharged home at this time. He will use [id number] analgesia medications as needed. Given a starter pack of Tylenol 3 as well as Zofran for home. Recommended follow-up with PCP in the next 1 to 3 days. Given a work note for off work tomorrow. Discussed signs and symptoms of concussion as well as strict return precautions. He was in agreement this plan. I instructed the patient to follow up with their PCP in the next 1-3 days. I explained that the patient should return to the emergency department if they experience any worsening symptoms. Strict return precautions were discussed with the patient. The patient expressed understanding of these instructions. I answered all questions that the patient had. The patient was discharged home in good condition with their prescriptions and follow up information. Undiagnosed new problem with uncertain prognosis? @ -No Drug Therapy requiring intensive monitoring for toxicity (Heparin, Nitro, Insulin, Cardizem)? @ -No Were any procedures done? @ -No Diagnosis/symptom? @ -Minor head injury, concussion Acute, or Chronic, or Acute on Chronic? @ -Acute Uncomplicated (without systemic symptoms) or Complicated (systemic symptoms)? @ -Uncomplicated Side effects of treatment? @ -No Exacerbation, Progression, or Severe Exacerbation? @ -No Poses a threat to life or bodily function? How? (Chest pain, [place], [place], pneumonia, PE, COPD, DKA, ARF, appy, cholecystitis, CVA, Diverticulitis, Homicidal, Suicidal, threat to staff... and all critical care pts) @ -No Disposition Clinical Impression: Minor head trauma, Concussion Disposition: HOME SELF-CARE Condition: Good Instructions (If sedation given, give patient instructions): Concussion (ED) Additional Instructions: Return to the emergency department if any worsening symptoms. Follow-up with your PCP in the next 1 to 3 days. Is patient prescribed a controlled substance at d/c from ED?: No Referrals: Sunil Zimmerman MD [Primary Care Provider] - 1-2 days Time of Disposition: 20:00
[2024-08-09] MEDS: Acetaminophen-Codeine 300-30mg TAB PO STA (20:06)
[2024-08-09] MEDS: ACET/COD 300 MG/30 MG STARTER PACK 6 TAB BTL PO STA (20:07)
[2024-08-09] MEDS: ONDANSETRON 4 MG ODT STARTER PACK 2 TAB BTL PO STA (20:07)
[2024-08-09 20:21] VITALS: BP 156/84; PULSE 88; RESP 19
== END 2024-08-09 20:12 | disposition home or self-care (01) ==
LOC: EC 18:10
DX: S06.0XAA Concussion with loss of consciousness status unknown, initial encounter (principal); Z85.841 Personal history of malignant neoplasm of brain; F17.290 Nicotine dependence, other tobacco product, uncomplicated; W22.8XXA Striking against or struck by other objects, initial encounter
CPT/HCPCS: 70450; 99283; S0119

== ENCOUNTER 2024-08-23 18:56 | Emergency (ER) | payer BC, OTHER ==
[2024-08-23 20:07] VITALS: TEMP 98.3
[2024-08-23 20:35] LABS: Basophils % (A) 0 %; Eosinophils # (A) 0.1 k/uL (0-0.7); Eosinophils % (A) 2 %; HCT 48.4 % (39.0-53.0); HGB 15.8 gm/dL (13.0-17.5); Lymphocytes % (A) 34 %; MCHC 32.7 g/dL (31.0-37.0); MCV 88.7 fL (80.0-100.0); Mean Platelet Volume 7.6; Monocytes # (A) 0.3 k/uL (0-1.0); Monocytes % (A) 6 %; Neutrophils # (A) 3.1 k/uL (1.3-7.7); Neutrophils % (A) 55 %; Platelet Count 261 k/uL (150-450); RBC 5.45 m/uL (4.30-5.90); RDW 12.9 % (11.5-15.5); WBC 5.7 k/uL (3.8-10.6)
[2024-08-23] MEDS: SODIUM CHLORIDE 0.9% 1,000 ML IV STA (20:36)
[2024-08-23] MEDS: diphenhydrAMINE 50 MG/ML 1 ML VIAL IVP STA (20:38)
[2024-08-23] MEDS: METOCLOPRAMIDE 5 MG/ML 2 ML VIAL IVP STA (20:40)
[2024-08-23] MEDS: DEXAMETHASONE SOD PHOSPHATE 10 MG/ML 1 ML VIAL IVP STA (20:42)
[2024-08-23 20:47] LABS: ALT 20 U/L (4-49); AST 33 U/L (17-59); African American GFR (CKD) >90 (>60 ml/min/1.73 sqM); Albumin 4.8 g/dL (3.5-5.0); Alkaline Phosphatase 45 U/L (38-126); Anion Gap 9 mmol/L; Blood Urea Nitrogen 12 mg/dL (9-20); Calcium 9.8 mg/dL (8.4-10.2); Carbon Dioxide 24 mmol/L (22-30); Chloride 104 mmol/L (98-107); Glucose 90 mg/dL (74-99); Non-African American GFR(CKD) >90 (>60 ml/min/1.73 sqM); Potassium 4.3 mmol/L (3.5-5.1); Sodium 137 mmol/L (137-145); Total Bilirubin 2.5 mg/dL (0.2-1.3); Total Protein 7.5 g/dL (6.3-8.2)
[2024-08-23] MEDS: MAGNESIUM SULFATE-D5W PMX 1 GM in DEXTROSE/WATER 1 100ML.BAG IVPB ONE (20:48)
[2024-08-23 21:50] VITALS: RESP 14
--- NOTE | 2024-08-23 21:55 | CT ---
EXAMINATION TYPE: CT brain wo con DATE OF EXAM: 08/23/2024 9:46 PM COMPARISON: Multiple prior CT studies, most recently dated 08/09/2024.. CLINICAL INDICATION: Male, 29 years old with history of Headache, Headache TECHNIQUE: Brain: Axial CT images of the brain were obtained with coronal and sagittal reformats created and rev iewed. Contrast used: None. Oral contrast used: None. CT DLP: 1171.1 mGycm, Automated exposure control for dose reduction was used. FINDINGS: Brain: Extra-axial spaces: No abnormal extra-axial fluid collections. Ventricular system: Within normal limits Cerebral parenchyma: No acute intraparenchymal hemorrhage or mass effect. Redemonstration of encephal omalacia involving the right temporal lobe. The means-white junction is well differentiated. Cerebellum: Mild cerebellar ectopia, unchanged. Mass effect: No evidence of midline shift. Intracranial vasculature: unremarkable Soft tissues: Normal. Calvarium/osseous structures: Right frontal and temporal craniotomy defects again visualized. Paranasal sinuses and mastoid air cells: Mild scattered paranasal sinus disease. Visualized orbits: Orbital contents are intact. IMPRESSION: No acute intracranial process. [facility], , 08/23/2024 9:53 PM
--- NOTE | 2024-08-23 22:45 | ED ---
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 Patient states that since his craniotomy in February 2024 that he has had occasional headaches however he woke up today with a severe headache. Reports that its on the top of his head and wraps around like headband. Has pain in his upper teeth. He feels as if the right side of his face is swollen where he had his incision. Patient recently seen in the emergency department for head injury and had a CT which demonstrated postop changes with no additional findings. He reports he was diagnosed with a concussion. Did not have a significant headache at that time. He did not take anything for the pain before coming in. He denies any numbness, tingling or weakness in his extremities. No slurred speech. Denies visual changes. No fevers. No other additional symptoms to include chest pain, shortness of breath, abdominal pain. No other alleviating, precipitating or modifying factors - Related Data Home Medications Medication Instructions Recorded Confirmed No Known Home Medications 02/10/24 02/10/24 Allergies Allergy/AdvReac Type Severity Reaction Status Date / Time oxycodone Allergy Rash/Hives Verified 08/23/24 19:04 cotton seed oil Allergy Unknown Uncoded 08/23/24 19:04 Review of Systems ROS Statement: Those systems with pertinent positive or pertinent negative responses have been documented in the HPI. ROS Other: All systems not noted in ROS Statement are negative. Past Medical History Past Medical History: No Reported History History of Any Multi-Drug Resistant Organisms: None Reported Past Surgical History: Appendectomy, Ear Surgery Additional Past Surgical History / Comment(s): Craniotomy to right temporal lobe r/t brain tumor. Past Psychological History: No Psychological Hx Reported Smoking Status: Vaper Past Alcohol Use History: None Reported Past Drug Use History: None Reported General Exam General appearance: alert, in no apparent distress Head exam: Present: atraumatic, normal inspection, other (well healed surgical incision right mormonism - no surrounding redness, edema) Eye exam: Present: normal appearance, PERRL, EOMI. Absent: scleral icterus, conjunctival injection, periorbital swelling ENT exam: Present: normal exam, mucous membranes moist Neck exam: Present: normal inspection. Absent: tenderness, meningismus, lymphadenopathy Respiratory exam: Present: normal lung sounds bilaterally. Absent: respiratory distress, wheezes, rales, rhonchi, stridor Cardiovascular Exam: Present: regular rate, normal rhythm, normal heart sounds. Absent: systolic murmur, diastolic murmur, rubs, gallop, clicks GI/Abdominal exam: Present: soft, normal bowel sounds. Absent: distended, tenderness, guarding, rebound, rigid Extremities exam: Present: normal inspection, full ROM, normal capillary refill. Absent: tenderness, pedal edema, joint swelling, calf tenderness Back exam: Present: normal inspection Neurological exam: Present: alert, oriented X3, CN II-XII intact Psychiatric exam: Present: normal affect, normal mood Skin exam: Present: warm, dry, intact, normal color. Absent: rash Course Vital Signs 08/23/24 08/23/24 08/23/24 18:59 20:06 21:45 Temperature 97.5 F L 98.3 F Pulse Rate 59 L 64 55 L Respiratory 18 14 Rate Blood Pressure 155/94 123/74 129/69 O2 Sat by Pulse 100 100 100 Oximetry 08/23/24 22:58 Temperature Pulse Rate 62 Respiratory 14 Rate Blood Pressure 128/72 O2 Sat by Pulse 97 Oximetry Medical Decision Making - Medical Decision Making Was pt. sent in by a medical professional or institution ([facility]BE[facility] Alonso, SLUBBER MACHINE OPERATOR, urgent care, hospital, or skilled nursing...) When possible be specific @ -No Did you speak to anyone other than the patient for history (EMS, parent, family, police, friend...)? What history was obtained from this source @ -Spoke with significant other for history Did you review nursing and triage notes (agree or disagree)? Why? @ -I reviewed and agree with nursing and triage notes Were old charts reviewed (outside hosp., previous admission, EMS record, old EKG, old radiological studies, urgent care reports/EKG's, skilled nursing records)? Report findings @ -I reviewed most recent CT which was completed in the emergency department after he had a involuntary Differential Diagnosis (chest pain, altered mental status, abdominal pain women, abdominal pain men, vaginal bleeding, weakness, fever, dyspnea, syncope, headache, dizziness, GI bleed, back pain, seizure, CVA, palpatations, mental health, musculoskeletal)? @ -Differential Headache: Migraine, tension, cluster, carbon monoxide, central venous thrombosis, pension karma temporal arteritis, acute closure glaucoma, intercranial hemorrhage, mastoiditis, sinusitis, head injury, this is not meant to be an all-inclusive list. EKG interpreted by me (3pts min.). @ -Not done X-rays interpreted by me (1pt min.). @ -None done CT interpreted by me (1pt min.). @ -Yes which demonstrates no acute intracranial process. Postop changes appreciated U/S interpreted by me (1pt. min.). @ -None done What testing was considered but not performed or refused? (CT, X-rays, U/S, labs)? Why? @ -None What meds were considered but not given or refused? Why? @ -None Did you discuss the management of the patient with other professionals (professionals i.e. , PA, SLUBBER MACHINE OPERATOR, lab, RT, psych nurse, psychotherapist social worker, asphalt plant laborer, teacher, agricultural extension officer, family caseworker)? Give summary @ -No Was smoking cessation discussed for >3mins.? @ -No Was critical care preformed (if so, how long)? @ -No Were there social determinants of health that impacted care today? How? (Homelessness, low income, unemployed, alcoholism, drug addiction, transportati on, low edu. Level, literacy, decrease access to med. care, shelter, rehab)? @ -No Was there de-escalation of care discussed even if they declined (Discuss DNR or withdrawal of care, Hospice)? DNR status @ -No What co-morbidities impacted this encounter? (DM, HTN, Smoking, COPD, CAD, Cancer, CVA, ARF, Chemo, Hep., AIDS, mental health diagnosis, sleep apnea, morbid obesity)? @ -Astrocytoma with removal Was patient admitted / discharged? Hospital course, mention meds given and route, prescriptions, significant lab abnormalities, going to OR and other pertinent info. @ -Upon arrival patient seen and evaluated in hallway 22. Thorough history and physical exam was performed. IV access was established. Laboratory studies are conducted. Patient is sent for CTA due to his reported new symptoms. He is given a migraine cocktail. Reevaluated and states that his pain is much improved. I discussed the results of the imaging with the patient. At this time he is stable for discharge home. Recommended that he call his neurosurgeon and oncologist to notify him of his symptoms. Return for any new or worsening symptoms. Patient agreeable plan was discharged in stable condition Undiagnosed new problem with uncertain prognosis? @ -No Drug Therapy requiring intensive monitoring for toxicity (Heparin, Nitro, Insulin, Cardizem)? @ -No Were any procedures done? @ -No Diagnosis/symptom? @ -Acute migraine cephalgia, history of astrocytoma with craniotomy Acute, or Chronic, or Acute on Chronic? @ -Acute Uncomplicated (without systemic symptoms) or Complicated (systemic symptoms)? @ -Complicated Side effects of treatment? @ -No Exacerbation, Progression, or Severe Exacerbation? @ -No Poses a threat to life or bodily function? How? (Chest pain, [place], [place], pneumonia, PE, COPD, DKA, ARF, appy, cholecystitis, CVA, Diverticulitis, Homicidal, Suicidal, threat to staff... and all critical care pts) @ -No - Lab Data Result diagrams: 08/23/24 20:28 08/23/24 20:28 Lab Results 08/23/24 08/23/24 Range/Units 20:28 20:28 WBC 5.7 (3.8-10.6) k/uL RBC 5.45 (4.30-5.90) m/uL Hgb 15.8 (13.0-17.5) gm/dL Hct 48.4 (39.0-53.0) % MCV 88.7 (80.0-100.0) fL MCH 29.0 (25.0-35.0) pg MCHC 32.7 (31.0-37.0) g/dL RDW 12.9 (11.5-15.5) % Plt Count 261 (150-450) k/uL MPV 7.6 Neutrophils % 55 % Lymphocytes % 34 % Monocytes % 6 % Eosinophils % 2 % Basophils % 0 % Neutrophils # 3.1 (1.3-7.7) k/uL Lymphocytes # 2.0 (1.0-4.8) k/uL Monocytes # 0.3 (0-1.0) k/uL Eosinophils # 0.1 (0-0.7) k/uL Basophils # 0.0 (0-0.2) k/uL Sodium 137 (137-145) mmol/L Potassium 4.3 (3.5-5.1) mmol/L Chloride 104 (98-107) mmol/L Carbon Dioxide 24 (22-30) mmol/L Anion Gap 9 mmol/L BUN 12 (9-20) mg/dL Creatinine 0.75 (0.66-1.25) mg/dL Est GFR (CKD-EPI)AfAm >90 (>60 ml/min/1.73 sqM) Est GFR (CKD-EPI)NonAf >90 (>60 ml/min/1.73 sqM) Glucose 90 (74-99) mg/dL Calcium 9.8 (8.4-10.2) mg/dL Total Bilirubin 2.5 H (0.2-1.3) mg/dL AST 33 (17-59) U/L ALT 20 (4-49) U/L Alkaline Phosphatase 45 (38-126) U/L Total Protein 7.5 (6.3-8.2) g/dL Albumin 4.8 (3.5-5.0) g/dL Disposition Clinical Impression: Headache, Hx of astrocytoma, Hx of craniotomy Disposition: HOME SELF-CARE Condition: Stable Instructions (If sedation given, give patient instructions): Acute Headache (ED) Additional Instructions: Please call your oncologist and neurosurgeon in the morning to talk to them about your symptoms. Return for any new or worsening symptoms Is patient prescribed a controlled substance at d/c from ED?: No Referrals: Sunil Zimmerman MD [Primary Care Provider] - 1-2 days Time of Disposition: 22:45
[2024-08-23 22:59] VITALS: BP 128/72; PULSE 62
== END 2024-08-23 22:59 | disposition home or self-care (01) ==
LOC: EC 18:56
DX: G43.909 Migraine, unspecified, not intractable, without status migrainosus (principal); F17.290 Nicotine dependence, other tobacco product, uncomplicated; Z85.841 Personal history of malignant neoplasm of brain; Z88.5 Allergy status to narcotic agent; Z91.09 Other allergy status, other than to drugs and biological substances
CPT/HCPCS: 36415; 80053; 85025; 70450; 99284; 96365; 96366; 96375 ×3; J1200; J1100; J2765; J3475